=== PATIENT | female | born 1960 | race Caucasian/White ===

== ENCOUNTER 2023-08-27 07:24 | Outpatient (CLI) | payer MEDICAID ==
[2023-08-27 07:42] LABS: BASOPHILS % (AUTO) 0.7 %; EOSINOPHILS % (AUTO) 0.4 %; HCT - HEMATOCRIT 36.8 % (37.0-47.0); HGB - HEMOGLOBIN 12.9 g/dL (12.0-16.0); LYMPHOCYTES % (AUTO) 36.1 %; MEAN CORPUSCULAR HEMOGLOBIN 33.8 pg (27.0-31.0); MEAN CORPUSCULAR HGB CONC 35.1 g/dL (32.0-36.0); MEAN CORPUSCULAR VOLUME 96.3 fL (81.0-99.0); MONOCYTES # (AUTO) 0.2 10^3/uL (0.0-1.0); MONOCYTES % (AUTO) 7.9 %; NEUTROPHILS # (AUTO) 1.5 10^3/uL (1.5-6.6); NEUTROPHILS % (AUTO) 54.2 %; PLT - PLATELET COUNT 89 10^3/uL (130-450); RED BLOOD COUNT 3.82 10^6/uL (4.20-5.40); WHITE BLOOD COUNT 2.8 x10^3/uL (4.8-10.8)
[2023-08-27 07:46] LABS: SLIDE REVIEW? Indicated
[2023-08-27 08:01] LABS: PLATELET ESTIMATE, MANUAL DECREASED (<130,000) (NORMAL); PLATELET MORPHOLOGY NORMAL APPEARANCE (NORMAL); RBC MORPHOLOGY (MULTIPLE) NORMAL APPEARANCE (NORMAL)
[2023-08-27 08:07] LABS: ALBUMIN 3.9 g/dL (3.2-5.5); ALBUMIN/GLOBULIN RATIO 1.6 (1.0-2.2); ALKALINE PHOSPHATASE 266 IU/L (42-121); ALT ALANINE AMINOTRANSFERASE 135 IU/L (10-60); AST ASPARTATE AMINOTRANSFERASE 573 IU/L (10-42); BILIRUBIN,TOTAL 4.4 mg/dL (0.2-1.0); BUN - BLOOD UREA NITROGEN 5 mg/dL (6-20); CARBON DIOXIDE - CO2 24 mmol/L (21-32); CHLORIDE 98 mmol/L (101-111); CHOL/HDL RATIO 2.4 (<4.4); CHOLESTEROL 238 mg/dL; CREATININE 0.6 mg/dL (0.6-1.3); GFR - MDRD 102 (>89); GLUCOSE 92 mg/dL (74-104); HDL CHOLESTEROL 101 mg/dL; LDL CHOLESTEROL,CALCULATED 105 mg/dL; POTASSIUM 3.9 mmol/L (3.5-4.5); SODIUM 137 mmol/L (135-145); TOTAL PROTEIN 6.3 g/dL (6.4-8.9); TRIGLYCERIDES 160 mg/dL (48-352); VLDL CHOLESTEROL 32 mg/dL
[2023-08-27 10:25] LABS: ESTIMATED AVERAGE GLUCOSE 94 mg/dL (70-100); HEMOGLOBIN A1c% 4.9 % (4.27-6.07)
== END 2023-08-27 07:25 | disposition home or self-care (01) ==
LOC: DI 07:24
DX: Z00.00 Encounter for general adult medical examination without abnormal findings (principal)
CPT/HCPCS: 36415; 80050; 80061; 83036; 83721; 84439

== ENCOUNTER 2023-08-27 09:12 | Outpatient (CLI) | payer MEDICAID ==
--- NOTE | 2023-08-27 16:55 | XRAY Report ---
PROCEDURE: Chest 2V INDICATIONS: SHORTNESS OF BREATH TECHNIQUE: 2 views of the chest were acquired. COMPARISON: None. FINDINGS: Surgical changes and devices: None. Lungs and pleura: No pleural effusions or pneumothorax. Lungs are clear. Mediastinum: Mediastinal contours appear normal. Heart size is normal. Bones and chest wall: No suspicious bony lesions. Overlying soft tissues appear unremarkable. IMPRESSION: No acute cardiopulmonary process. Reviewed by: Desire Paulino MD on 08/27/2023 4:53 PM PDT Approved by: Desire Paulino MD on 08/27/2023 4:53 PM PDT Station ID: [id number]
== END 2023-08-27 23:59 | disposition home or self-care (01) ==
LOC: DI.N 09:12
DX: R07.81 Pleurodynia (principal)

== ENCOUNTER 2023-09-03 08:48 | Outpatient (CLI) | payer MEDICAID ==
[2023-09-03 12:23] LABS: GLUCOSE, URINE (UA) 100 mg/dL (NEGATIVE); KETONES,URINE (UA) TRACE mg/dL (NEGATIVE); OCCULT BLOOD,URINE NEGATIVE (NEGATIVE)
[2023-09-03 12:25] LABS: BILIRUBIN,URINE COLOR INTERFERENCE (NEGATIVE); CLARITY,URINE CLOUDY (CLEAR)
[2023-09-03 12:28] LABS: PT - PROTHROMBIN TIME 10.7 secs (9.9-12.6)
[2023-09-03 12:28] LABS: AMORPHOUS SEDIMENT,UR Marked /LPF; BACTERIA,URINE Few /HPF (None Seen); SQUAMOUS EPITHELIAL CELL,UR FEW Squamous (<= Few)
[2023-09-03 12:39] LABS: ALBUMIN 3.8 g/dL (3.2-5.5); BILIRUBIN,DIRECT 4.33 mg/dL (0.03-0.18); TOTAL PROTEIN 6.6 g/dL (6.4-8.9)
== END 2023-09-03 08:49 | disposition home or self-care (01) ==
LOC: LAB.N 08:48
DX: F10.20 Alcohol dependence, uncomplicated (principal)
CPT/HCPCS: 36415; 80076; 81001; 82105; 85610; 87086

== ENCOUNTER 2023-09-08 13:37 | Outpatient (CLI) | payer MEDICAID ==
[2023-09-09 03:10] LABS: HBsAG SCREEN Negative (Negative); HCV AB Non Reactive (Non Reactive); HEPATITIS B CORE IGM AB Negative (Negative)
== END 2023-09-08 13:38 | disposition home or self-care (01) ==
LOC: LAB.N 13:37
DX: F10.20 Alcohol dependence, uncomplicated (principal)
CPT/HCPCS: 36415; 80074

== ENCOUNTER 2023-09-27 06:54 | Outpatient (CLI) | payer MEDICAID ==
--- NOTE | 2023-09-27 16:08 | Ultrasound Report ---
PROCEDURE: Abdomen Complete INDICATIONS: ALCOHOL DEPENDENCE TECHNIQUE: Real-time scanning was performed of the abdominal and retroperitoneal organs, with image documentatio n. COMPARISON: None. FINDINGS: Liver: Liver is normal in size and demonstrates diffusely increased echotexture. Portal vein is moralez nt and demonstrates hepatopedal flow. Gallbladder: No gallstones, sludge, wall thickening or pericholecystic edema. Biliary ducts: Intrahepatic bile ducts are non-dilated. Extrahepatic bile duct caliber measures 4 m m. Normal is 6-7 mm or less in diameter, or 10 mm or less post-cholecystectomy. Pancreas: Visualized portions of the pancreas demonstrates is mildly increased echogenicity. Spleen: Spleen is normal in size and homogeneous in echotexture. Kidneys: Kidneys are normal in size and echotexture. Right kidney measures 9.5 cm long; left kidney measures 10.1 cm long. No hydronephrosis or nephrolithiasis. No solid masses. No complex renal cys tic lesions which require follow-up. Aorta: Visualized aorta is normal in caliber at less than 3 cm. Iliacs: Proximal common iliac arteries are normal in caliber at less than 2.5 cm. IVC: Intrahepatic inferior vena cava is patent. Miscellaneous: No free abdominal fluid. IMPRESSION: 1. Diffuse increased hepatic echotexture most likely secondary to hepatic fatty infiltration. Other h epatic cellular disease could have a similar ultrasound appearance. Please correlate with liver funct ion tests. 2. Pancreas is probably increased echogenicity. Please correlate with serum lipase. Reviewed by: Charles Paez MD on 09/27/2023 3:07 PM AKDT Approved by: Charles Paez MD on 09/27/2023 3:07 PM AKDT Station ID: [id number]
== END 2023-09-27 06:55 | disposition home or self-care (01) ==
LOC: DI 06:54
DX: F10.20 Alcohol dependence, uncomplicated (principal)

== ENCOUNTER 2024-12-13 15:42 | Observation (INO) ==
[2024-12-13] MEDS: PANTOPRAZOLE 40 MG VIAL IVP STA (16:36)
[2024-12-13] MEDS: ONDANSETRON 4 MG/2 ML VIAL IVP STA (16:36)
[2024-12-13 16:41] LABS: HCT - HEMATOCRIT 30.5 % (37.0-47.0); HGB - HEMOGLOBIN 10.0 g/dL (12.0-16.0); MEAN PLATELET VOLUME 9.5 fL (7.9-10.8); NRBC ABSOLUTE COUNT (AUTO) 0.00 x10^3/uL; NUCLEATED RED BLOOD CELLS AUTO 0.0 /100WBC; PLT - PLATELET COUNT 173 10^3/uL (130-450); RED CELL DISTRIBUTION WIDTH 15.9 % (12.0-15.0)
[2024-12-13 16:51] LABS: CARBON DIOXIDE - CO2 15.0 mmol/L (21-32)
--- NOTE | 2024-12-13 16:51 | ED Physician Documentation ---
History of Present Illness Stated complaint Stated Complaint: VOMITING, GI Chief complaint Chief Complaint: Abd Pain History obtained from History obtained from: Patient and Family History of Present Illness Pain level max: 3 Pain level now: 2 Additonal information Additional information: Patient is a 64-year-old female who presents to the emergency department with vomiting x 4 days. Today she started vomiting bloody emesis. She states that she has had dark tarry stools today as well. Denies any history of liver disease, varices. Has not had similar symptoms previously. No fevers or chills. She states she drinks 1-2 shots of whiskey every 2 days. No fevers. No recent travel. No antibiotics. She complains of epigastric abdominal pain. Has not had similar symptoms previously. Has never had an endoscopy or colonoscopy. Review of Systems Constitutional Denies: Fever or Chills Cardiovascular Denies: chest pain Respiratory Denies: Cough Gastrointestinal Reports: Nausea and Vomiting Meds/Allgy Home Medications Ambulatory Orders Medication Instructions Recorded Confirmed epinephrine 0.3 mg/0.3 mL 0.3 mg IM Q15M 12/13/2411/18 injection, auto-injector (EpiPen) ibuprofen 800 mg tablet 800 mg PO BID 12/13/2412/14 Allergies Allergies Allergy/AdvReac Type Severity Reaction Status Date / Time Penicillins Allergy Intermediate Hives Verified 12/13/24 16:05 acetaminophen (From Percocet) Allergy Mild affect Verified 12/13/24 18:58 vision, can tolerate the vicodin oxycodone (From Percocet) Allergy Mild affect Verified 12/13/24 18:58 vision, can tolerate the vicodin PFSH Active Problems All Active Problems Knee pain (Acute) Hip pain (Acute) Sinusitis (Acute) Asthma (Acute) Bronchitis (Acute) Osteoarthrosis (Acute) Back pain, acute (Acute) Bacterial sinusitis (Acute) Elevated blood pressure reading (Acute) Dysfunction of both eustachian tubes (Acute) Right otitis media (Acute) Allergic rhinitis (Acute) Allergic conjunctivitis, bilateral (Acute) Encounter for preventative adult health care examination (Acute) Shortness of breath (Acute) Rib pain on left side (Acute) Abdominal pain, LUQ (Acute) H/O colonoscopy (Acute) Pap smear abnormality of cervix (Acute) Screening mammography declined (Acute) Dizziness (Acute) Encounter for smoking cessation counseling (Acute) Alcohol dependence (Acute) Cough (Acute) Elevated LFTs (Acute) Metabolic acidosis (Acute) Alcohol abuse (Acute) Acute upper gastrointestinal bleeding (Acute) Vomiting (Acute) Medical History Medical History No pertinent past medical history No pertinent past medical history Social History Social History Smoking Status: Current some day smoker Number of Years Smoked: 50 How many cigarettes a day do you smoke? (20 cigarettes=1 Pk): 1 Second hand tobacco smoke exposure: Yes Do you dip or chew tobacco?: No Do you vape?: No Patient requests smoking cessation consult: No Initiate information on smoking cessation: No Smoking Status Details: The patient stated she is trying to quit smoking for ten years now and is currently smoking 1/2 a cigarette daily. She used to smoke 8-10 cigarettes a day. Living arrangement: At home Marital Status: Living Condition: With spouse/s.o. Level: Independent Do you feel safe in your home environment?: Yes History of physical, verbal, emotional, or financial abuse?: No ETOH Use: Beer Frequency: Daily Substance Use: cannabis (any form) Exam Exam Vital Signs: Vital Signs x48h Temp Pulse Resp BP Pulse Ox 12/13/24 16:34 100 16 135/72 H 98 12/13/24 16:19 103 H 16 136/96 H 98 12/13/24 16:04 98 16 139/86 H 99 12/13/24 16:02 36.9 C 109 H 15 151/96 H 98 Constitutional normal general appearance and no apparent distress Thin female HENMT oropharynx normal moist mucous membranes Eyes PERRL Neck/C-Spine visual inspection normal Respiratory breath sounds equal bilaterally, normal respiratory effort and clear to auscultation bilaterally Cardiovascular normal heart rate noted and regular rhythm noted Gastrointestinal abdomen normal to inspection, abdomen soft to palpation and nondistended Mild diffuse abdominal tenderness. No peritoneal signs. Genitourinary no CVA tenderness Extremities no edema Neurology speech normal Psychiatry mental status grossly normal and oriented x3 Skin skin color normal Results Vitals Vitals: Vital Signs - 24 hr 12/13/24 16:02 12/13/24 16:04 12/13/24 16:19 Temperature 36.9 C Temperature Source Temporal Artery Scan Pulse Rate 109 H 98 103 H Respiratory Rate 15 16 16 Blood Pressure 151/96 H 139/86 H 136/96 H O2 Saturation 98 99 98 O2 Source Room air Room air Room air Pain Intensity 7 6 6 12/13/24 16:34 12/13/24 17:00 12/13/24 18:00 Temperature Temperature Source Pulse Rate 100 110 H 110 H Respiratory Rate 16 16 18 Blood Pressure 135/72 H 135/72 H 130/70 O2 Saturation 98 97 96 O2 Source Room air Room air Room air Pain Intensity 6 5 5 12/13/24 18:07 Temperature Temperature Source Pulse Rate Respiratory Rate Blood Pressure O2 Saturation O2 Source Pain Intensity 6 Oxygen O2 Source Room air Labs Labs: Laboratory Tests 12/13/24 12/13/24 16:30 16:55 WBC 14.1 H RBC 3.19 L Hgb 10.0 L Hct 30.5 L MCV 95.6 MCH 31.3 H MCHC 32.8 RDW 15.9 H Plt Count 173 MPV 9.5 Neut # (Auto) 12.3 H Lymph # (Auto) 1.1 L [place] # (Auto) 0.6 Eos # (Auto) 0.0 Baso # (Auto) 0.1 Absolute Nucleated RBC 0.00 Nucleated RBC % 0.0 PT 13.4 H INR 1.2 APTT 27.1 Sodium 133 L Potassium 3.5 Chloride 91 L Carbon Dioxide 15 L Anion Gap 27.0 H BUN 9 Creatinine 0.5 L Estimated GFR (MDRD) 125 Glucose 57 L* Calcium 8.6 Phosphorus 2.7 Magnesium 1.6 L Total Bilirubin 2.4 H AST 83 H ALT 28 Alkaline Phosphatase 305 H Total Protein 6.9 Albumin 4.1 Globulin 2.8 Albumin/Globulin Ratio 1.5 Lipase 315 H Urine Color YELLOW Urine Clarity CLEAR Urine pH 6.0 Ur Specific Hanna 1.030 Urine Protein 30 H Urine Glucose (UA) NEGATIVE Urine Ketones >=80 H Urine Occult Blood SMALL Urine Nitrite NEGATIVE Urine Bilirubin NEGATIVE Urine Urobilinogen 0.2 (NORMAL) Ur Leukocyte Esterase NEGATIVE Urine RBC 0-5 Urine WBC 0-3 Ur Squamous Epith Cells MANY Squamous H Urine Bacteria Rare Urine Casts 3-5 Hyaline Casts Ur Microscopic Review INDICATED Urine Culture Comments NOT INDICATED Ethyl Alcohol 81.3 Blood Type A POSITIVE Antibody Screen NEGATIVE PD Medical Decision Making ED course Complexity details: reviewed results, re-evaluated patient, considered differential and d/w patient ED course: Patient with hematemesis after 4 days of vomiting. Has been states she drinks alcohol daily. She states she has 1 shot of alcohol every 2 days. Her alcohol level is elevated here. Given IV Protonix, Zofran and Reglan. CT scan shows hepatic steatosis with small ascites and possible enterocolopathy. Hemoglobin is 10 here. She did have active hematemesis. No history of varices. No varices seen on CT scan. Given her active upper GI bleed, will place in observation with the hospitalist for serial hemoglobin hematocrit. Consult to Dr. Arboleda, general surgery who will see the patient for possible endoscopy. Discussed with the hospitalist who accepts. This document was made in part using voice recognition software. While efforts are made to proofread this document, sound alike and grammatical errors may occur. Discharge Plan Discharge Patient Disposition: ED Place in Observation Clinical Impression: Vomiting, Acute upper gastrointestinal bleeding Interventions: ED Admission Assessment Last Done: 12/13/24 18:55 Vitals documented within 30 minutes of discharge?: Yes
[2024-12-13 16:53] LABS: ETOH - ETHANOL 81.3 mg/dL; PHOSPHORUS 2.7 mg/dL (2.5-5.0)
[2024-12-13 16:54] LABS: ALT ALANINE AMINOTRANSFERASE 28.0 IU/L (10-60); AST ASPARTATE AMINOTRANSFERASE 83.0 IU/L (10-42); BUN - BLOOD UREA NITROGEN 9.0 mg/dL (6-20); CREATININE 0.5 mg/dL (0.6-1.3); GFR - MDRD 125.0 (>89)
[2024-12-13 16:56] LABS: INR 1.2 (0.8-1.2); PT - PROTHROMBIN TIME 13.4 secs (9.9-12.6)
[2024-12-13] MEDS: SODIUM CHLORIDE 0.9% 1,000 ML IV STA (16:57)
[2024-12-13] MEDS: DEXTROSE 50% ABBOJECT 25 GM/50 ML SYRINGE IVP STA (17:07)
[2024-12-13 17:12] LABS: GLUCOSE, URINE (UA) NEGATIVE (NEGATIVE); KETONES,URINE (UA) >=80 mg/dL (NEGATIVE); OCCULT BLOOD,URINE SMALL (NEGATIVE)
[2024-12-13 17:13] LABS: CASTS, URINE 3-5 Hyaline Casts /LPF; SQUAMOUS EPITHELIAL CELL,UR MANY Squamous (<= Few)
[2024-12-13] MEDS: METOCLOPRAMIDE 10 MG/2 ML VIAL IVP STA (17:13)
--- NOTE | 2024-12-13 17:47 | CT Report ---
EXAM: CT Abdomen/Pelvis W DATE: 12/13/2024 5:00 PM PDT INDICATION: 64 years Female with vomiting, gi bleed TECHNIQUE: Using MDCT technique, axial images were obtained through the abdomen and pelvis, from the bases of the lungs through the pubic symphysis, following the intravenous administration of contrast. Sagittal and coronal MPR reconstructions were performed. Scan was performed in compliance with NEMA XR 29-213 Dose Limiting Standard. In accordance with CT protocol optimization, one or more of the following dose reduction techniques were utilized for this exam: automated exposure control, adjustment of mA and/or KV based on patient size, or use of iterative reconstructive technique. PROTOCOL: Routine LIMITATION: None. CONTRAST: 80 cc Omnipaque 300 COMPARISON: None available. FINDINGS: Lung bases and visualized mediastinum: No consolidation or pleural effusion. Probable wall thickening of the distal thoracic esophagus. Liver: There is hepatomegaly measuring 17.85 cm in vertical diameter. There is contour nodularity as well as enlargement of the lateral segment of the left lobe. Probable significant diffuse fatty infiltration, with heterogeneous appearance. There is a recanalized left paraumbilical vein with mild abdominal varices. Spleen: No significant focal lesion seen. Pancreas: No significant focal lesion seen. Gallbladder and bile ducts: No biliary dilatation or significant focal lesion seen. Adrenal glands: No significant focal lesion seen. Kidneys and ureters: No calculi, hydronephrosis, or suspicious focal lesions are seen. GI tract, mesentery, and peritoneum: There is a small amount of ascites seen in the upper abdomen and pelvis. There is no bowel dilatation. There is significant wall thickening of the right colon, with submucosal edema. There is also wall thickening in the distal ileum. No free air or fluid collections. There is moderate degree of diffuse mesenteric edema. Upper abdomen and retroperitoneal spaces: No significant adenopathy or other mass seen. Vascular structures: The abdominal aorta, major visceral branches and iliac arteries are normal in caliber. Urinary bladder: No significant focal lesion seen. Reproductive organs: The uterus and adnexal regions are unremarkable. Inguinal regions and abdominal wall: No hernia or other significant focal lesion seen. Osseous structures: No significant focal lesion seen. IMPRESSION: 1. Size of diffuse hepatocellular disease, with hepatomegaly, probably significant fatty infiltration and possible superimposed acute steatohepatitis. 2. There are signs of portal hypertension, small amount of ascites, diffuse mesenteric edema, no significant splenomegaly. 3. Wall thickening of the distal ileum and right colon, may be due to portal enterocolopathy, the possibility of inflammatory bowel disease would have to be excluded clinically. No focal lesion otherwise. Reviewed by: Les Pang MD on 12/13/2024 5:46 PM PDT Approved by: Les Pang MD on 12/13/2024 5:46 PM PDT Station ID: [id number]
[2024-12-13] MEDS: LORazepam 2 MG/ML VIAL IVP STA (17:51)
[2024-12-13] MEDS: HYDROmorphone 0.5 MG/0.5 ML SYRINGE IVP STA (18:07)
--- NOTE | 2024-12-13 18:32 | HISTORY & PHYSICAL EXAMINATION ---
Chief Complaint Chief Complaint Chief Complaint: Vomiting History of Present Illness Admitted From Admitted From:: Home with significant other History Obtained From History obtained from: Interview with patient and significant other History of Present Illness HPI Comment/Other: 64-year-old female who reports drinking 1-2 drinks of whiskey a day has been vomiting for the past 4 days. She reports significant vomiting for 4 days, with coffee-ground/dark red emesis today. She also reports melanotic stools and abdominal pain. She reports she only has 1-2 shots of whiskey a day and her last drink was 6 days ago. Of note, her significant other reports that he thinks that is more like 1 to 2 glasses of whiskey a day at minimum and she did have an elevated alcohol content in the ER In the ER, she was noted to have a hemoglobin of 10 which is down from the 12.9 from last year. Also with leukocytosis at 14.1, CO2 15, anion gap 27, glucose 57. LFTs were elevated, but they actually appear better than when they were checked last year. UA positive for ketones. CT abdomen/pelvis was performed which shows diffuse hepatocellular disease with hepatomegaly, probable superimposed acute steatohepatitis. Also signs of portal hypertension, small ascites, diffuse mesenteric edema, as well as wall thickening of the distal ileum and right colon caused by portal enterocolopathy versus inflammatory bowel disease. Given her drop in hemoglobin secondary to hematemesis, general surgery was contacted by ER provider, and recommendation was made for medicine to place in observation for serial hemoglobin Meds/Allgy Home Medications Ambulatory Orders Medication Instructions Recorded Confirmed epinephrine 0.3 mg/0.3 mL 0.3 mg IM Q15M 12/13/24 injection, auto-injector (EpiPen) ibuprofen 800 mg tablet 800 mg PO BID 12/13/24 Allergies Allergies Allergy/AdvReac Type Severity Reaction Status Date / Time Penicillins Allergy Intermediate Hives Verified 12/13/24 16:05 acetaminophen (From Percocet) Allergy Mild affect Verified 12/13/24 18:58 vision, can tolerate the vicodin oxycodone (From Percocet) Allergy Mild affect Verified 12/13/24 18:58 vision, can tolerate the vicodin PFSH Active Problems All Active Problems (Updated 12/13/24 @ 19:08 by Jeronimo Quispe) Knee pain (Acute) Hip pain (Acute) Sinusitis (Acute) Asthma (Acute) Bronchitis (Acute) Osteoarthrosis (Acute) Back pain, acute (Acute) Bacterial sinusitis (Acute) Elevated blood pressure reading (Acute) Dysfunction of both eustachian tubes (Acute) Right otitis media (Acute) Allergic rhinitis (Acute) Allergic conjunctivitis, bilateral (Acute) Encounter for preventative adult health care examination (Acute) Shortness of breath (Acute) Rib pain on left side (Acute) Abdominal pain, LUQ (Acute) H/O colonoscopy (Acute) Pap smear abnormality of cervix (Acute) Screening mammography declined (Acute) Dizziness (Acute) Encounter for smoking cessation counseling (Acute) Alcohol dependence (Acute) Cough (Acute) Elevated LFTs (Acute) Metabolic acidosis (Acute) Alcohol abuse (Acute) Acute upper gastrointestinal bleeding (Acute) Vomiting (Acute) Social History Social History (Updated 12/13/24 @ 16:22 by Sergio Krause, RN, BSN) Smoking Status: Current some day smoker Living arrangement: At home Marital Status: Living Condition: With spouse/s.o. Do you feel safe in your home environment?: Yes History of physical, verbal, emotional, or financial abuse?: No ETOH Use: Beer Frequency: Daily Substance Use: cannabis (any form) Review of Systems Status of ROS: 10 or more systems reviewed and unremarkable except as noted in history and below Constitutional Denies: Fever or Chills Cardiovascular Denies: Irregular heart rate, chest pain, palpitations, edema or shortness of breath with exertion Respiratory Denies: Shortness of breath or Cough Gastrointestinal Reports: Abdominal pain, Nausea, Vomiting, Coffee grounds in vomit and Melena; Denies: Abdominal distention Genitourinary Denies: Painful urination Exam Exam Vital Signs: Vital Signs x48h Temp Pulse Pulse Resp BP BP Pulse Ox 12/13/24 19:12 36.6 C 110 H 20 113/78 95 12/13/24 18:55 116 H 18 124/87 96 12/13/24 18:00 110 H 18 130/70 96 12/13/24 17:00 110 H 16 135/72 H 97 12/13/24 16:34 100 16 135/72 H 98 12/13/24 16:19 103 H 16 136/96 H 98 12/13/24 16:04 98 16 139/86 H 99 12/13/24 16:02 36.9 C 109 H 15 151/96 H 98 Constitutional normal general appearance HENMT normocephalic and head/scalp atraumatic Eyes PERRL Neck/C-Spine visual inspection normal Lymph no lymphadenopathy noted Chest inspection of chest normal Respiratory breath sounds equal bilaterally and normal respiratory effort Cardiovascular heart rate abnormal (tachycardic) Gastrointestinal abdomen normal to inspection, abdomen soft to palpation and tender to palpation (mild) (Generalized, but worsened in the upper half) Extremities normal to inspection Neurology GCS 15 Psychiatry oriented x3 Skin skin color normal Conclusion/Plan Problem List (1) Acute upper gastrointestinal bleeding: Plan: Secondary to alcohol abuse Reports coffee-ground emesis and melena for the past day General Surgery consult Received 40 mg Protonix in the ER 40 mg Protonix IV push twice daily Carafate 4 times daily Trend hemoglobin every 8 (2) Alcohol abuse: Plan: Patient reports drinking 1-2 shots of whiskey a day, and that her last drink was 6 days ago. Of note, significant other reports that these "shots" are likely more normal glass size. Also, she had an elevated ethanol level in the ED Evidence of liver disease on CT, likely secondary to this I have ordered CIWA protocol with as needed Ativan Librium 25 mg p.o. every 6 hours (3) Metabolic acidosis: Plan: She has a high anion gap metabolic acidosis with an anion gap of 27 and CO2 of 15 This is a combination of effect of alcohol, starvation ketosis, Dehydration She was given 1 L saline in the ER I am starting her on LR at 150 x 2 bags BMP in a.m. (4) Elevated LFTs: Plan: She has had a LFT elevation per our records for at least a year. Her levels are actually improved from the last time she was checked She will need follow-up outpatient for this and aggressive alcohol cessation counseling Plan Place in observation DNR/DNI Her significant other is her surrogate decision maker Lab Results Lab results reviewed: Yes 12/13/24 19:53 12/13/24 16:30 Diagnostic Imaging Results Diagnostic Imaging Results: positive Final report reviewed Core Measures Anticipated LOS I expect patient to be DC'd or transferred within 96 hours.: Yes DVT/VTE - Prophylaxis VTE/DVT Device ordered at admit?: Yes
[2024-12-13] MEDS ORDERED: ONDANSETRON ODT 4 MG TABLET TL PRN (19:03)
[2024-12-13] MEDS: THIAMINE 100 MG/1 ML 2 ML MDV IVP ONE (19:38)
[2024-12-13] MEDS: LACTATED RINGERS 1,000 ML IV SCH (19:39)
[2024-12-13] MEDS: SUCRALFATE 1 GM/10 ML UDC PO SCH (19:46)
[2024-12-13 19:58] LABS: HCT - HEMATOCRIT 26.6 % (37.0-47.0); HGB - HEMOGLOBIN 8.6 g/dL (12.0-16.0)
[2024-12-13] MEDS: DEXTROSE 5%-LACTATED RINGERS 1,000 ML IV SCH (20:56)
[2024-12-13] MEDS: ACETAMINOPHEN 325 MG TABLET PO PRN (22:10)
[2024-12-13] MEDS: PANTOPRAZOLE 40 MG VIAL IVP SCH (22:11)
[2024-12-14] MEDS: SODIUM CHLORIDE FLUSH 0.9% 10 ML SYRINGE IVP SCH (00:04)
[2024-12-14 05:22] LABS: HCT - HEMATOCRIT 23.9 % (37.0-47.0); HGB - HEMOGLOBIN 8.0 g/dL (12.0-16.0); MEAN PLATELET VOLUME 10.3 fL (7.9-10.8); NRBC ABSOLUTE COUNT (AUTO) 0.00 x10^3/uL; NUCLEATED RED BLOOD CELLS AUTO 0.0 /100WBC; PLT - PLATELET COUNT 91 10^3/uL (130-450); RED CELL DISTRIBUTION WIDTH 15.9 % (12.0-15.0)
[2024-12-14 05:40] LABS: BUN - BLOOD UREA NITROGEN 7.0 mg/dL (6-20); CARBON DIOXIDE - CO2 24.0 mmol/L (21-32); CREATININE 0.5 mg/dL (0.6-1.3); GFR - MDRD 125.0 (>89)
[2024-12-14] MEDS: POTASSIUM CHLOR 10 MEQ/100 ML 10 MEQ/100 ML BAG IV SCH ×2 (07:41→22:21)
--- NOTE | 2024-12-14 08:29 | ANESTHESIA PROCEDURE NOTE ---
Pre-Anesthesia VS, & Labs Diagnosis Surgical Diagnosis:: GI bleed Procedure Procedure: EGD Vitals Vital Signs: Temp Pulse Resp BP Pulse Ox O2 Flow Rate 36.7 C 108 H 18 108/76 96 1 12/14/24 07:40 12/14/24 07:40 12/14/24 07:40 12/14/24 07:40 12/14/24 07:40 12/14/24 07:40 Height (in): 5 ft 3 in Weight (kg): 45 kg Body Mass Index: 17.5 BMI Classification: Underweight NPO NPO: >8 hours Is Patient ?: Not Applicable Lab Results Current Lab Results: Laboratory Tests 12/14/24 06:03: POC Whole Bld Glucose 208 12/14/24 04:47: WBC 4.5 L, RBC 2.55 L, Hgb 8.0 L, Hct 23.9 L, MCV 93.7, MCH 31.4 H, MCHC 33.5, RDW 15.9 H, Plt Count 91 L, MPV 10.3, Neut # (Auto) 3.6, Lymph # (Auto) 0.6 L, [place] # (Auto) 0.2, Eos # (Auto) 0.1, Baso # (Auto) 0.0, Absolute Nucleated RBC 0.00, Nucleated RBC % 0.0, Sodium 131 L, Potassium 2.8 L, Chloride 96 L, Carbon Dioxide 24, Anion Gap 11.0, BUN 7, Creatinine 0.5 L, Estimated GFR (MDRD) 125, Glucose 170 H, Calcium 7.8 L 12/14/24 00:04: POC Whole Bld Glucose 143 12/13/24 20:34: POC Whole Bld Glucose 79 12/13/24 19:53: Hgb 8.6 L, Hct 26.6 L 12/13/24 16:30: WBC 14.1 H, RBC 3.19 L, Hgb 10.0 L, Hct 30.5 L, MCV 95.6, MCH 31.3 H, MCHC 32.8, RDW 15.9 H, Plt Count 173, MPV 9.5, Neut # (Auto) 12.3 H, L ymph # (Auto) 1.1 L, [place] # (Auto) 0.6, Eos # (Auto) 0.0, Baso # (Auto) 0.1, Absolute Nucleated RBC 0.00, Nucleated RBC % 0.0, PT 13.4 H, INR 1.2, APTT 27.1, Sodium 133 L, Potassium 3.5, Chloride 91 L, Carbon Dioxide 15 L, Anion Gap 27.0 H, BUN 9, Creatinine 0.5 L, Estimated GFR (MDRD) 125, Glucose 57 L*, Calcium 8.6, Phosphorus 2.7, Magnesium 1.6 L, Total Bilirubin 2.4 H, AST 83 H, ALT 28, A lkaline Phosphatase 305 H, Total Protein 6.9, Albumin 4.1, Globulin 2.8, Albumin/Globulin Ratio 1.5, Lipase 315 H, Ethyl Alcohol 81.3, Blood Type A POSITIVE, Antibody Screen NEGATIVE Lab results reviewed: Yes 12/14/24 04:47 12/14/24 04:47 Meds/Allgy Home Medications Ambulatory Orders Medication Instructions Recorded Confirmed epinephrine 0.3 mg/0.3 mL 0.3 mg IM Q15M 12/13/2411/18 injection, auto-injector (EpiPen) ibuprofen 800 mg tablet 800 mg PO BID 12/13/2412/14 Allergies Allergies Allergy/AdvReac Type Severity Reaction Status Date / Time Penicillins Allergy Intermediate Hives Verified 12/13/24 16:05 acetaminophen (From Percocet) Allergy Mild affect Verified 12/13/24 18:58 vision, can tolerate the vicodin oxycodone (From Percocet) Allergy Mild affect Verified 12/13/24 18:58 vision, can tolerate the vicodin PFSH Active Problems All Active Problems Knee pain (Acute) Hip pain (Acute) Sinusitis (Acute) Asthma (Acute) Bronchitis (Acute) Osteoarthrosis (Acute) Back pain, acute (Acute) Bacterial sinusitis (Acute) Elevated blood pressure reading (Acute) Dysfunction of both eustachian tubes (Acute) Right otitis media (Acute) Allergic rhinitis (Acute) Allergic conjunctivitis, bilateral (Acute) Encounter for preventative adult health care examination (Acute) Shortness of breath (Acute) Rib pain on left side (Acute) Abdominal pain, LUQ (Acute) H/O colonoscopy (Acute) Pap smear abnormality of cervix (Acute) Screening mammography declined (Acute) Dizziness (Acute) Encounter for smoking cessation counseling (Acute) Alcohol dependence (Acute) Cough (Acute) Elevated LFTs (Acute) Metabolic acidosis (Acute) Alcohol abuse (Acute) Acute upper gastrointestinal bleeding (Acute) Vomiting (Acute) Medical History Medical History No pertinent past medical history No pertinent past medical history Social History Social History Smoking Status: Current some day smoker Number of Years Smoked: 50 How many cigarettes a day do you smoke? (20 cigarettes=1 Pk): 1 Second hand tobacco smoke exposure: Yes Do you dip or chew tobacco?: No Do you vape?: No Patient requests smoking cessation consult: No Initiate information on smoking cessation: No Smoking Status Details: The patient stated she is trying to quit smoking for ten years now and is currently smoking 1/2 a cigarette daily. She used to smoke 8-10 cigarettes a day. Living arrangement: At home Marital Status: Living Condition: With spouse/s.o. Level: Independent Do you feel safe in your home environment?: Yes History of physical, verbal, emotional, or financial abuse?: No ETOH Use: Beer Frequency: Daily Substance Use: cannabis (any form) Anesthesia Exam (Expanded) Exam General: Mild distress Dental: WNL Mouth Openin Fingerbreadth Neck Mobility: Reduced Thyromental Distance: 4-6 cm Exam Exam Vital Signs: Vital Signs x48h Temp Pulse Resp BP BP Pulse Ox O2 Flow Rate 12/14/24 07:40 36.7 C 108 H 18 108/76 96 1 12/14/24 03:52 94 1 12/14/24 03:52 36.7 C 110 H 20 109/73 91 L Plan Plan Anesthesia Type: General Consent for Procedure(s) Verified and Reviewed: Yes Code Status: Attempt Resuscitation (Limited; patient has a DNR, but agrees to let us correct anything we believe to be related to anesthesia; will accept blood transfusion; does not want shock or chest compressions) ASA Classification ASA classification: 3-Severe systemic disease Is this case an emergency?: Yes
[2024-12-14] MEDS ORDERED: THROMBIN (BOVINE) 5,000 UNIT VIAL TOP ONE (08:54)
[2024-12-14] MEDS ORDERED: PROPOFOL 200 MG/20 ML VIAL IVP ONE (09:24)
[2024-12-14] MEDS ORDERED: LIDOCAINE-PF 2% 10 ML AMP SUBQ ONE (09:24)
[2024-12-14] MEDS ORDERED: fentaNYL 100 MCG/2 ML VIAL ONE (09:24)
[2024-12-14] MEDS ORDERED: ROCURONIUM 50 MG/5 ML VIAL ONE (09:24)
[2024-12-14] MEDS ORDERED: ePHEDrine 50 MG/ML VIAL IVP ONE (09:30)
[2024-12-14] MEDS ORDERED: SUGAMMADEX 200 MG/2 ML VIAL IVP ONE (09:36)
[2024-12-14] MEDS ORDERED: ATROPINE ABBOJECT 1 MG/10 ML SYRINGE IVP PRN (09:49)
[2024-12-14] MEDS ORDERED: NALOXONE 0.4 MG/ML VIAL IVP PRN (09:49)
[2024-12-14] MEDS ORDERED: METOCLOPRAMIDE 10 MG/2 ML VIAL IVP PRN (09:49)
[2024-12-14] MEDS ORDERED: ONDANSETRON 4 MG/2 ML VIAL IVP PRN (09:49)
[2024-12-14] MEDS ORDERED: fentaNYL 100 MCG/2 ML VIAL IVP PRN (09:49)
[2024-12-14] MEDS ORDERED: ePHEDrine 50 MG/ML VIAL IVP PRN (09:49)
[2024-12-14] MEDS ORDERED: ONDANSETRON 4 MG/2 ML VIAL ONE (09:58)
[2024-12-14] MEDS: ONDANSETRON 4 MG/2 ML VIAL IVP PRN (10:00)
--- NOTE | 2024-12-14 10:03 | PHARMACY PROGRESS NOTE ---
Best Possible Medication History Admit Date and Time: 12/13/24 1815 Home Medications Medication Instructions Recorded Confirmed Type epinephrine 0.3 mg/0.3 mL 0.3 mg IM Q15M 12/13/2411/18 History injection, auto-injector (EpiPen) ibuprofen 800 mg tablet 800 mg PO BID 12/13/2412/14 History Processed by: Pharmacy Medications reviewed in ED?: No Medication History completed: Yes Patient Interview: Completed [facility] Statement: As the person ultimately responsible for medication therapy, providers are able to order a medication from an existing home medication list in [facility] via the "Reconcile Routine" prior to Confirmation of that medication by support merchandiser. Such practice is discouraged except when the physician, in their clinical judgment, deems that a medical need exists for a medication without regard to previous use.
[2024-12-14] MEDS: LACTATED RINGERS 1,000 ML IV SCH (10:12)
--- NOTE | 2024-12-14 10:39 | ANESTHESIA POST OP EVALUATION ---
Anesthesia Post Eval Post Anesthesia Eval Vitals: Last Vital Signs Temp 36.1 C L 12/14/24 10:20 Pulse 105 H 12/14/24 10:25 Resp 18 12/14/24 10:25 BP 91/67 12/14/24 10:25 Pulse Ox 93 12/14/24 10:25 O2 Flow Rate 1 12/14/24 07:40 CV Function Including HR & BP: Stable Pain Control: Satisfactory Nausea & Vomiting: Negative Mental Status: Baseline Respiratory Status: Airway Patent Hydration Status: Satisfactory Anesthesia Complications: None
[2024-12-14] MEDS: THIAMINE 100 MG TABLET PO SCH (11:13)
[2024-12-14] MEDS: PRENATAL VITAMIN TABLET PO SCH (11:14)
--- NOTE | 2024-12-14 11:23 | CONSULTATION NOTE ---
Referring Provider Name of Referring Provider:: Michael Posadas DNP Consult Date: 12/13/24 Chief Complaint Chief Complaint Chief Complaint: Hematemesis and melena History of Present Illness Admitted From Admitted From:: ED History Obtained From Records Reviewed: Yes History obtained from: Chart and patient Exam Limitations: None History of Present Illness HPI Comment/Other: Patient was examined in the [facility] med-surg unit at the request of Michael Posadas DNP for an EGD to determine the source of her hematemesis. 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 Her admission blood alcohol would likely argue for a higher consumption. The patient states that she started vomiting about 4 days ago and with time the vomitus became bloody. Soon thereafter she noted dark stools. She is thin but has not noted recent unexplained weight loss. CT scan showed likely liver disease and there is a concern for varices versus ulcer disease. She denies any recent endoscopy. Meds/Allgy Home Medications Ambulatory Orders Medication Instructions Recorded Confirmed epinephrine 0.3 mg/0.3 mL 0.3 mg IM Q15M 12/13/2411/18 injection, auto-injector (EpiPen) ibuprofen 800 mg tablet 800 mg PO BID 12/13/2412/14 omeprazole 40 mg capsule,delayed 40 mg PO BID #60 caps 12/16/24 release vit,calcium 27-ferrous 1 tab PO DAILY 30 days #30 tabs 12/16/24 fum 60 mg iron-folic acid 1 mg tablet (Trinatal Rx 1) thiamine mononitrate (vit B1) 100 100 mg PO DAILY 30 d ays #30 tabs 12/16/24 mg tablet (Vitamin B-1 (mononitrate)) tramadol 50 mg tablet 50 mg PO Q8H PRN pain #20 ta bs 12/16/24 rivaroxaban 15 mg (42)-20 mg (9) See Rx Instructions P O .COMPLEX 12/17/24 tablets in a starter pack #51 ea Allergies Allergies Allergy/AdvReac Type Severity Reaction Status Date / Time Penicillins Allergy Intermediate Hives Verified 12/13/24 16:05 acetaminophen (From Percocet) Allergy Mild affect Verified 12/13/24 18:58 vision, can tolerate the vicodin oxycodone (From Percocet) Allergy Mild affect Verified 12/13/24 18:58 vision, can tolerate the vicodin PFS Active Problems All Active Problems Hematemesis of unknown etiology (Acute) Portal vein thrombosis (Acute) Alcoholic pancreatitis (Acute) Hyponatremia (Acute) Knee pain (Acute) Hip pain (Acute) Sinusitis (Acute) Asthma (Acute) Bronchitis (Acute) Osteoarthrosis (Acute) Back pain, acute (Acute) Bacterial sinusitis (Acute) Elevated blood pressure reading (Acute) Dysfunction of both eustachian tubes (Acute) Right otitis media (Acute) Allergic rhinitis (Acute) Allergic conjunctivitis, bilateral (Acute) Encounter for preventative adult health care examination (Acute) Shortness of breath (Acute) Rib pain on left side (Acute) Abdominal pain, LUQ (Acute) H/O colonoscopy (Acute) Pap smear abnormality of cervix (Acute) Screening mammography declined (Acute) Dizziness (Acute) Encounter for smoking cessation counseling (Acute) Alcohol dependence (Acute) Cough (Acute) Elevated LFTs (Acute) Alcohol abuse (Acute) Medical History Medical History No pertinent past medical history No pertinent past medical history Social History Social History Smoking Status: Current some day smoker Number of Years Smoked: 50 How many cigarettes a day do you smoke? (20 cigarettes=1 Pk): 1 Second hand tobacco smoke exposure: Yes Do you dip or chew tobacco?: No Do you vape?: No Patient requests smoking cessation consult: No Initiate information on smoking cessation: No Smoking Status Details: The patient stated she is trying to quit smoking for ten years now and is currently smoking 1/2 a cigarette daily. She used to smoke 8-10 cigarettes a day. Living arrangement: At home Marital Status: Living Condition: With spouse/s.o. Level: Independent Do you feel safe in your home environment?: Yes History of physical, verbal, emotional, or financial abuse?: No ETOH Use: Beer Frequency: Daily Substance Use: cannabis (any form) Results Lab Results Lab results reviewed: Yes 12/16/24 06:16 12/16/24 06:16 Other Lab Results: Lab Results x24hrs 12/14/24 12/14/24 12/14/24 Range/Units 06:03 04:47 00:04 WBC 4.5 L (4.8-10.8) x10^3/uL RBC 2.55 L (4.20-5.40) 10^6/uL Hgb 8.0 L (12.0-16.0) g/dL Hct 23.9 L (37.0-47.0) % MCV 93.7 (81.0-99.0) fL MCH 31.4 H (27.0-31.0) pg MCHC 33.5 (32.0-36.0) g/dL RDW 15.9 H (12.0-15.0) % Plt Count 91 L (130-450) 10^3/uL MPV 10.3 (7.9-10.8) fL Neut # (Auto) 3.6 (1.5-6.6) 10^3/uL Lymph # (Auto) 0.6 L (1.5-3.5) 10^3/uL [place] # (Auto) 0.2 (0.0-1.0) 10^3/uL Eos # (Auto) 0.1 (0.0-0.7) 10^3/uL Baso # (Auto) 0.0 (0.0-0.1) 10^3/uL Absolute Nucleated RBC 0.00 x10^3/uL Nucleated RBC % 0.0 /100WBC PT (9.9-12.6) secs INR (0.8-1.2) APTT (24.9-33.3) secs Sodium 131 L (135-145) mmol/L Potassium 2.8 L (3.5-4.5) mmol/L Chloride 96 L (101-111) mmol/L Carbon Dioxide 24 (21-32) mmol/L Anion Gap 11.0 (6-13) BUN 7 (6-20) mg/dL Creatinine 0.5 L (0.6-1.3) mg/dL Estimated GFR (MDRD) 125 (>89) Glucose 170 H (74-104) mg/dL POC Whole Bld Glucose 208 143 (70-100) mg/dL Calcium 7.8 L (8.5-10.3) mg/dL Phosphorus (2.5-5.0) mg/dL Magnesium (1.7-2.3) mg/dL Total Bilirubin (0.2-1.0) mg/dL AST (10-42) IU/L ALT (10-60) IU/L Alkaline Phosphatase (42-121) IU/L Total Protein (6.4-8.9) g/dL Albumin (3.2-5.5) g/dL Globulin (2.1-4.2) g/dL Albumin/Globulin Ratio (1.0-2.2) Lipase (11-82) U/L Urine Color Urine Clarity (CLEAR) Urine pH (5.0-7.5) PH Ur Specific [place] (1.002-1.030) Urine Protein (NEGATIVE) mg/dL Urine Glucose (UA) (NEGATIVE) mg/dL Urine Ketones (NEGATIVE) mg/dL Urine Occult Blood (NEGATIVE) Urine Nitrite (NEGATIVE) Urine Bilirubin (NEGATIVE) Urine Urobilinogen (NORMAL) E.U./dL Ur Leukocyte Esterase (NEGATIVE) Urine RBC (0-5) /HPF Urine WBC (0-5) /HPF Ur Squamous Epith Cells (<= Few) Urine Bacteria (None Seen) /HPF Urine Casts /LPF Ur Microscopic Review Urine Culture Comments Ethyl Alcohol mg/dL Blood Type Antibody Screen 12/13/24 12/13/24 12/13/24 Range/Units 20:34 19:53 16:55 WBC (4.8-10.8) x10^3/uL RBC (4.20-5.40) 10^6/uL Hgb 8.6 L (12.0-16.0) g/dL Hct 26.6 L (37.0-47.0) % MCV (81.0-99.0) fL MCH (27.0-31.0) pg MCHC (32.0-36.0) g/dL RDW (12.0-15.0) % Plt Count (130-450) 10^3/uL MPV (7.9-10.8) fL Neut # (Auto) (1.5-6.6) 10^3/uL Lymph # (Auto) (1.5-3.5) 10^3/uL [place] # (Auto) (0.0-1.0) 10^3/uL Eos # (Auto) (0.0-0.7) 10^3/uL Baso # (Auto) (0.0-0.1) 10^3/uL Absolute Nucleated RBC x10^3/uL Nucleated RBC % /100WBC PT (9.9-12.6) secs INR (0.8-1.2) APTT (24.9-33.3) secs Sodium (135-145) mmol/L Potassium (3.5-4.5) mmol/L Chloride (101-111) mmol/L Carbon Dioxide (21-32) mmol/L Anion Gap (6-13) BUN (6-20) mg/dL Creatinine (0.6-1.3) mg/dL Estimated GFR (MDRD) (>89) Glucose (74-104) mg/dL POC Whole Bld Glucose 79 (70-100) mg/dL Calcium (8.5-10.3) mg/dL Phosphorus (2.5-5.0) mg/dL Magnesium (1.7-2.3) mg/dL Total Bilirubin (0.2-1.0) mg/dL AST (10-42) IU/L ALT (10-60) IU/L Alkaline Phosphatase (42-121) IU/L Total Protein (6.4-8.9) g/dL Albumin (3.2-5.5) g/dL Globulin (2.1-4.2) g/dL Albumin/Globulin Ratio (1.0-2.2) Lipase (11-82) U/L Urine Color YELLOW Urine Clarity CLEAR (CLEAR) Urine pH 6.0 (5.0-7.5) PH Ur Specific [place] 1.030 (1.002-1.030) Urine Protein 30 H (NEGATIVE) mg/dL Urine Glucose (UA) NEGATIVE (NEGATIVE) mg/dL Urine Ketones >=80 H (NEGATIVE) mg/dL Urine Occult Blood SMALL (NEGATIVE) Urine Nitrite NEGATIVE (NEGATIVE) Urine Bilirubin NEGATIVE (NEGATIVE) Urine Urobilinogen 0.2 (NORMAL) (NORMAL) E.U./dL Ur Leukocyte Esterase NEGATIVE (NEGATIVE) Urine RBC 0-5 (0-5) /HPF Urine WBC 0-3 (0-5) /HPF Ur Squamous Epith Cells MANY Squamous H (<= Few) Urine Bacteria Rare (None Seen) /HPF Urine Casts 3-5 Hyaline Casts /LPF Ur Microscopic Review INDICATED Urine Culture Comments NOT INDICATED Ethyl Alcohol mg/dL Blood Type Antibody Screen 12/13/24 Range/Units 16:30 WBC 14.1 H (4.8-10.8) x10^3/uL RBC 3.19 L (4.20-5.40) 10^6/uL Hgb 10.0 L (12.0-16.0) g/dL Hct 30.5 L (37.0-47.0) % MCV 95.6 (81.0-99.0) fL MCH 31.3 H (27.0-31.0) pg MCHC 32.8 (32.0-36.0) g/dL RDW 15.9 H (12.0-15.0) % Plt Count 173 (130-450) 10^3/uL MPV 9.5 (7.9-10.8) fL Neut # (Auto) 12.3 H (1.5-6.6) 10^3/uL Lymph # (Auto) 1.1 L (1.5-3.5) 10^3/uL [place] # (Auto) 0.6 (0.0-1.0) 10^3/uL Eos # (Auto) 0.0 (0.0-0.7) 10^3/uL Baso # (Auto) 0.1 (0.0-0.1) 10^3/uL Absolute Nucleated RBC 0.00 x10^3/uL Nucleated RBC % 0.0 /100WBC PT 13.4 H (9.9-12.6) secs INR 1.2 (0.8-1.2) APTT 27.1 (24.9-33.3) secs Sodium 133 L (135-145) mmol/L Potassium 3.5 (3.5-4.5) mmol/L Chloride 91 L (101-111) mmol/L Carbon Dioxide 15 L (21-32) mmol/L Anion Gap 27.0 H (6-13) BUN 9 (6-20) mg/dL Creatinine 0.5 L (0.6-1.3) mg/dL Estimated GFR (MDRD) 125 (>89) Glucose 57 L* (74-104) mg/dL POC Whole Bld Glucose (70-100) mg/dL Calcium 8.6 (8.5-10.3) mg/dL Phosphorus 2.7 (2.5-5.0) mg/dL Magnesium 1.6 L (1.7-2.3) mg/dL Total Bilirubin 2.4 H (0.2-1.0) mg/dL AST 83 H (10-42) IU/L ALT 28 (10-60) IU/L Alkaline Phosphatase 305 H (42-121) IU/L Total Protein 6.9 (6.4-8.9) g/dL Albumin 4.1 (3.2-5.5) g/dL Globulin 2.8 (2.1-4.2) g/dL Albumin/Globulin Ratio 1.5 (1.0-2.2) Lipase 315 H (11-82) U/L Urine Color Urine Clarity (CLEAR) Urine pH (5.0-7.5) PH Ur Specific [place] (1.002-1.030) Urine Protein (NEGATIVE) mg/dL Urine Glucose (UA) (NEGATIVE) mg/dL Urine Ketones (NEGATIVE) mg/dL Urine Occult Blood (NEGATIVE) Urine Nitrite (NEGATIVE) Urine Bilirubin (NEGATIVE) Urine Urobilinogen (NORMAL) E.U./dL Ur Leukocyte Esterase (NEGATIVE) Urine RBC (0-5) /HPF Urine WBC (0-5) /HPF Ur Squamous Epith Cells (<= Few) Urine Bacteria (None Seen) /HPF Urine Casts /LPF Ur Microscopic Review Urine Culture Comments Ethyl Alcohol 81.3 mg/dL Blood Type A POSITIVE Antibody Screen NEGATIVE Review of Systems Her mentation was such that she could converse but a review of symptoms would prove challenging. Exam Exam Vital Signs: Vital Signs x48h Temp Pulse Pulse Resp BP BP BP 12/14/24 10:25 105 H 18 91/67 12/14/24 10:20 36.1 C L 107 H 18 99/68 12/14/24 10:15 108 H 16 95/72 12/14/24 10:10 108 H 16 106/74 12/14/24 10:05 36.3 C L 101 H 14 102/70 12/14/24 10:00 98 13 104/71 12/14/24 09:55 100 14 105/73 12/14/24 09:52 36.1 C L 101 H 10 L 106/74 12/14/24 07:40 36.7 C 108 H 18 108/76 12/14/24 03:52 12/14/24 03:52 36.7 C 110 H 20 109/73 Pulse Ox O2 Flow Rate 12/14/24 10:25 93 12/14/24 10:20 95 12/14/24 10:15 94 12/14/24 10:10 97 12/14/24 10:05 100 12/14/24 10:00 100 12/14/24 09:55 100 12/14/24 09:52 100 12/14/24 07:40 96 1 12/14/24 03:52 94 1 12/14/24 03:52 91 L General: 64 year old thin female, appears much older than stated age, well developed, well nourished HEENT: Normocephalic, atraumatic, extraocular movement intact, mucous membranes pink and moist, sclera anicteric and slightly injected Neck: Supple without pain on palpation, mass or bruit Cardiac: Regular rate and rhythm without rub, gallop, or murmur Chest: Clear to auscultation bilaterally Abdomen: Soft, mildly tender without peritoneal signs, normoactive bowel sounds, no hepatomegaly, no splenomegaly Genitourinary: Deferred Rectal: Deferred Extremities: No gross neurovascular problem, no clubbing, cyanosis or edema Gait: Did not evaluate as I did not get her out of bed Psychiatric: Alert and oriented to person place and time, asks and answers questions appropriately, mood and affect are a bit blunted Conclusion/Plan Problem List (1) Hematemesis of unknown etiology: Plan: EGD with possible biopsies and/or polypectomies. Indications, procedure, alternatives (such as barium swallow and even no procedure at all) and risks including but not limited to perforation requiring operative repair, bleeding with its risks, and were fully explained to her. I anthony diagrams explaining the esophageal and stomach anatomy and the proposed procedure and handed it to her. Review of her history does not reveal any significant systemic disease that would contraindicate use of conscious sedation or MAC anesthesia. All questions were fully answered. Verbal and written consent was obtained. The patient in preparation for her scope has been n.p.o. 45 minutes of [id number] time spent with the patient the majority of which was spent in discussion, coordination of their care and completion of the requisite paperwork CPT 57757 Lab Results Lab results reviewed: Yes 12/16/24 06:16 12/16/24 06:16
[2024-12-14] MEDS: MAGNESIUM SULFATE 2 GRAM 2 GM/50 ML BAG IV ONE (12:04)
[2024-12-14 14:06] LABS: HCT - HEMATOCRIT 24.8 % (37.0-47.0); HGB - HEMOGLOBIN 8.4 g/dL (12.0-16.0)
--- NOTE | 2024-12-14 14:22 | PROVIDER PROGRESS NOTE ---
Subjective Prog Note Date Prog Note Date: 12/14/24 Subjective Pt reports feeling: Improved Current Medications Current Medications Current Medications: Current Medications Generic Name Dose Route Start Last Admin Trade Name Nery PRN Reason Stop Dose Admin Acetaminophen 650 mg 12/13/24 19:03 12/14/24 07:49 Acetaminophen 325 Mg Tablet PO 650 mg Q4HR PRN Administration Pain 1 to 4, or Fever Chlordiazepoxide HCl 25 mg 12/13/24 19:03 12/14/24 12:04 Chlordiazepoxide 25 Mg Capsule PO 25 mg Q6HR AVERY Administration Lorazepam 1 mg 12/13/24 19:03 Lorazepam 1 Mg Tablet PO Q1H PRN CIWA > 8 Protocol Ondansetron HCl 4 mg 12/13/24 19:03 12/14/24 10:00 Ondansetron 4 Mg/2 Ml Vial IVP 4 mg Q6HR PRN Administration Nausea / Vomiting Ondansetron HCl 4 mg 12/13/24 19:03 Ondansetron Odt 4 Mg Tablet TL Q6HR PRN Nausea / Vomiting Pantoprazole Sodium 40 mg 12/13/24 21:00 12/14/24 07:40 Pantoprazole 40 Mg Vial IVP 40 mg BID AVERY Administration Multivit/Folic Acid/Iron 1 tab 12/14/24 09:00 12/14/24 11:14 Vitamin Tablet PO Not Given DAILY AVERY Prochlorperazine Edisylate 10 mg 12/13/24 20:26 Prochlorperazine 10 Mg/2 Ml Vial IVP Q6HR PRN Nausea / Vomiting Sodium Chloride 10 ml 12/13/24 19:03 Sodium Chloride Flush 0.9% 10 Ml Syringe IVP PRN PRN NEEDED PER PROVIDER ORDERS Sodium Chloride 10 ml 12/14/24 01:00 12/14/24 11:14 Sodium Chloride Flush 0.9% 10 Ml Syringe IVP Not Given 0100,0900,1700 AVERY Sucralfate 1 gm 12/13/24 19:03 12/14/24 12:04 Sucralfate 1 Gm/10 Ml Udc PO 1 gm 0700,1100,1600,2200 AVERY Administration Thiamine HCl 100 mg 12/14/24 09:00 12/14/24 11:13 Thiamine 100 Mg Tablet PO Not Given DAILY AVERY Objective Vital Signs/Intake & Output Reviewed Vital Signs: Yes Vital Signs: Vital Signs x48h Temp Pulse Pulse Resp BP BP Pulse Ox 12/14/24 12:05 36.4 C L 107 H 16 86/63 L 98 12/14/24 11:35 36.4 C L 109 H 16 104/75 94 12/14/24 11:05 36.4 C L 112 H 18 105/74 95 12/14/24 10:50 36.5 C 112 H 18 108/73 94 12/14/24 10:35 36.4 C L 114 H 18 88/65 L 95 12/14/24 10:25 105 H 18 91/67 93 12/14/24 10:20 36.1 C L 107 H 18 99/68 95 12/14/24 10:15 108 H 16 95/72 94 12/14/24 10:10 108 H 16 106/74 97 12/14/24 10:05 36.3 C L 101 H 14 102/70 100 12/14/24 10:00 98 13 104/71 100 12/14/24 09:55 100 14 105/73 100 12/14/24 09:52 36.1 C L 101 H 10 L 106/74 100 12/14/24 07:40 36.7 C 108 H 18 108/76 96 12/14/24 07:00 O2 Flow Rate 12/14/24 12:05 12/14/24 11:35 12/14/24 11:05 12/14/24 10:50 12/14/24 10:35 12/14/24 10:25 12/14/24 10:20 12/14/24 10:15 12/14/24 10:10 12/14/24 10:05 12/14/24 10:00 12/14/24 09:55 12/14/24 09:52 12/14/24 07:40 1 12/14/24 07:00 1 Intake & Output: Intake & Output 12/11/24 12/12/24 12/13/24 12/14/24 23:59 23:59 23:59 23:59 Intake Total 1195 / 1195 2628 / 2628 Balance 1195 / 1195 2628 / 2628 Weight (kg) 45 kg 45 kg Objective General Appearance: positive No acute distress and Alert Eyes Bilateral: positive Normal inspection Respiratory: positive Chest non-tender and No respiratory distress Cardiovascular: positive Tachycardia Abdomen: positive Tenderness Skin: positive Color nml Extremities: positive Non-tender Neurologic/Psychiatric: positive Oriented x3 Lab Results 12/14/24 13:56 12/14/24 04:47 Other Labs: Lab Results x24hrs 12/14/24 12/14/24 12/14/24 Range/Units 13:56 06:03 04:47 WBC 4.5 L (4.8-10.8) x10^3/uL RBC 2.55 L (4.20-5.40) 10^6/uL Hgb 8.4 L 8.0 L (12.0-16.0) g/dL Hct 24.8 L 23.9 L (37.0-47.0) % MCV 93.7 (81.0-99.0) fL MCH 31.4 H (27.0-31.0) pg MCHC 33.5 (32.0-36.0) g/dL RDW 15.9 H (12.0-15.0) % Plt Count 91 L (130-450) 10^3/uL MPV 10.3 (7.9-10.8) fL Neut # (Auto) 3.6 (1.5-6.6) 10^3/uL Lymph # (Auto) 0.6 L (1.5-3.5) 10^3/uL Steele # (Auto) 0.2 (0.0-1.0) 10^3/uL Eos # (Auto) 0.1 (0.0-0.7) 10^3/uL Baso # (Auto) 0.0 (0.0-0.1) 10^3/uL Absolute Nucleated RBC 0.00 x10^3/uL Nucleated RBC % 0.0 /100WBC PT (9.9-12.6) secs INR (0.8-1.2) APTT (24.9-33.3) secs Sodium 131 L (135-145) mmol/L Potassium 2.8 L (3.5-4.5) mmol/L Chloride 96 L (101-111) mmol/L Carbon Dioxide 24 (21-32) mmol/L Anion Gap 11.0 (6-13) BUN 7 (6-20) mg/dL Creatinine 0.5 L (0.6-1.3) mg/dL Estimated GFR (MDRD) 125 (>89) Glucose 170 H (74-104) mg/dL POC Whole Bld Glucose 208 (70-100) mg/dL Calcium 7.8 L (8.5-10.3) mg/dL Phosphorus (2.5-5.0) mg/dL Magnesium (1.7-2.3) mg/dL Total Bilirubin (0.2-1.0) mg/dL AST (10-42) IU/L ALT (10-60) IU/L Alkaline Phosphatase (42-121) IU/L Total Protein (6.4-8.9) g/dL Albumin (3.2-5.5) g/dL Globulin (2.1-4.2) g/dL Albumin/Globulin Ratio (1.0-2.2) Lipase (11-82) U/L Urine Color Urine Clarity (CLEAR) Urine pH (5.0-7.5) PH Ur Specific [place] (1.002-1.030) Urine Protein (NEGATIVE) mg/dL Urine Glucose (UA) (NEGATIVE) mg/dL Urine Ketones (NEGATIVE) mg/dL Urine Occult Blood (NEGATIVE) Urine Nitrite (NEGATIVE) Urine Bilirubin (NEGATIVE) Urine Urobilinogen (NORMAL) E.U./dL Ur Leukocyte Esterase (NEGATIVE) Urine RBC (0-5) /HPF Urine WBC (0-5) /HPF Ur Squamous Epith Cells (<= Few) Urine Bacteria (None Seen) /HPF Urine Casts /LPF Ur Microscopic Review Urine Culture Comments Ethyl Alcohol mg/dL Blood Type Antibody Screen 12/14/24 12/13/24 12/13/24 Range/Units 00:04 20:34 19:53 WBC (4.8-10.8) x10^3/uL RBC (4.20-5.40) 10^6/uL Hgb 8.6 L (12.0-16.0) g/dL Hct 26.6 L (37.0-47.0) % MCV (81.0-99.0) fL MCH (27.0-31.0) pg MCHC (32.0-36.0) g/dL RDW (12.0-15.0) % Plt Count (130-450) 10^3/uL MPV (7.9-10.8) fL Neut # (Auto) (1.5-6.6) 10^3/uL Lymph # (Auto) (1.5-3.5) 10^3/uL Steele # (Auto) (0.0-1.0) 10^3/uL Eos # (Auto) (0.0-0.7) 10^3/uL Baso # (Auto) (0.0-0.1) 10^3/uL Absolute Nucleated RBC x10^3/uL Nucleated RBC % /100WBC PT (9.9-12.6) secs INR (0.8-1.2) APTT (24.9-33.3) secs Sodium (135-145) mmol/L Potassium (3.5-4.5) mmol/L Chloride (101-111) mmol/L Carbon Dioxide (21-32) mmol/L Anion Gap (6-13) BUN (6-20) mg/dL Creatinine (0.6-1.3) mg/dL Estimated GFR (MDRD) (>89) Glucose (74-104) mg/dL POC Whole Bld Glucose 143 79 (70-100) mg/dL Calcium (8.5-10.3) mg/dL Phosphorus (2.5-5.0) mg/dL Magnesium (1.7-2.3) mg/dL Total Bilirubin (0.2-1.0) mg/dL AST (10-42) IU/L ALT (10-60) IU/L Alkaline Phosphatase (42-121) IU/L Total Protein (6.4-8.9) g/dL Albumin (3.2-5.5) g/dL Globulin (2.1-4.2) g/dL Albumin/Globulin Ratio (1.0-2.2) Lipase (11-82) U/L Urine Color Urine Clarity (CLEAR) Urine pH (5.0-7.5) PH Ur Specific [place] (1.002-1.030) Urine Protein (NEGATIVE) mg/dL Urine Glucose (UA) (NEGATIVE) mg/dL Urine Ketones (NEGATIVE) mg/dL Urine Occult Blood (NEGATIVE) Urine Nitrite (NEGATIVE) Urine Bilirubin (NEGATIVE) Urine Urobilinogen (NORMAL) E.U./dL Ur Leukocyte Esterase (NEGATIVE) Urine RBC (0-5) /HPF Urine WBC (0-5) /HPF Ur Squamous Epith Cells (<= Few) Urine Bacteria (None Seen) /HPF Urine Casts /LPF Ur Microscopic Review Urine Culture Comments Ethyl Alcohol mg/dL Blood Type Antibody Screen 12/13/24 12/13/24 Range/Units 16:55 16:30 WBC 14.1 H (4.8-10.8) x10^3/uL RBC 3.19 L (4.20-5.40) 10^6/uL Hgb 10.0 L (12.0-16.0) g/dL Hct 30.5 L (37.0-47.0) % MCV 95.6 (81.0-99.0) fL MCH 31.3 H (27.0-31.0) pg MCHC 32.8 (32.0-36.0) g/dL RDW 15.9 H (12.0-15.0) % Plt Count 173 (130-450) 10^3/uL MPV 9.5 (7.9-10.8) fL Neut # (Auto) 12.3 H (1.5-6.6) 10^3/uL Lymph # (Auto) 1.1 L (1.5-3.5) 10^3/uL Steele # (Auto) 0.6 (0.0-1.0) 10^3/uL Eos # (Auto) 0.0 (0.0-0.7) 10^3/uL Baso # (Auto) 0.1 (0.0-0.1) 10^3/uL Absolute Nucleated RBC 0.00 x10^3/uL Nucleated RBC % 0.0 /100WBC PT 13.4 H (9.9-12.6) secs INR 1.2 (0.8-1.2) APTT 27.1 (24.9-33.3) secs Sodium 133 L (135-145) mmol/L Potassium 3.5 (3.5-4.5) mmol/L Chloride 91 L (101-111) mmol/L Carbon Dioxide 15 L (21-32) mmol/L Anion Gap 27.0 H (6-13) BUN 9 (6-20) mg/dL Creatinine 0.5 L (0.6-1.3) mg/dL Estimated GFR (MDRD) 125 (>89) Glucose 57 L* (74-104) mg/dL POC Whole Bld Glucose (70-100) mg/dL Calcium 8.6 (8.5-10.3) mg/dL Phosphorus 2.7 (2.5-5.0) mg/dL Magnesium 1.6 L (1.7-2.3) mg/dL Total Bilirubin 2.4 H (0.2-1.0) mg/dL AST 83 H (10-42) IU/L ALT 28 (10-60) IU/L Alkaline Phosphatase 305 H (42-121) IU/L Total Protein 6.9 (6.4-8.9) g/dL Albumin 4.1 (3.2-5.5) g/dL Globulin 2.8 (2.1-4.2) g/dL Albumin/Globulin Ratio 1.5 (1.0-2.2) Lipase 315 H (11-82) U/L Urine Color YELLOW Urine Clarity CLEAR (CLEAR) Urine pH 6.0 (5.0-7.5) PH Ur Specific [place] 1.030 (1.002-1.030) Urine Protein 30 H (NEGATIVE) mg/dL Urine Glucose (UA) NEGATIVE (NEGATIVE) mg/dL Urine Ketones >=80 H (NEGATIVE) mg/dL Urine Occult Blood SMALL (NEGATIVE) Urine Nitrite NEGATIVE (NEGATIVE) Urine Bilirubin NEGATIVE (NEGATIVE) Urine Urobilinogen 0.2 (NORMAL) (NORMAL) E.U./dL Ur Leukocyte Esterase NEGATIVE (NEGATIVE) Urine RBC 0-5 (0-5) /HPF Urine WBC 0-3 (0-5) /HPF Ur Squamous Epith Cells MANY Squamous H (<= Few) Urine Bacteria Rare (None Seen) /HPF Urine Casts 3-5 Hyaline Casts /LPF Ur Microscopic Review INDICATED Urine Culture Comments NOT INDICATED Ethyl Alcohol 81.3 mg/dL Blood Type A POSITIVE Antibody Screen NEGATIVE Assessment/Plan Problem List (1) Acute upper gastrointestinal bleeding: Impression: Secondary to alcohol abuse Underwent EGD today, which showed a small Payton-Bray tear Continue PPI Continue to trend hemoglobin For 1 more day Hemoglobin hit its mady this morning at 8, this afternoon is up to 8.4. She still has blood pressure 86/63 with heart rate 107, indicating that she is not quite stabilized for discharge Continue Carafate Okay for low fiber diet (2) Alcohol abuse: Impression: Patient reports drinking 1-2 shots of whiskey a day, and that her last drink was 6 days ago. Of note, significant other reports that these "shots" are likely more normal glass size. Also, she had an elevated ethanol level in the ED Evidence of liver disease on CT, likely secondary to this I have ordered CIWA protocol with as needed Ativan Continue Librium 25 mg p.o. every 6 hours 12/14: If my suspicions are correct, and she is still actively drinking up until the point of her presentation to the hospital, tomorrow she will have significant withdrawal symptoms. We will monitor her for signs and symptoms of alcohol withdrawal/delirium tremens. I have ordered Ativan 1 mg IV and p.o. to manage this (3) Metabolic acidosis: Impression: Metabolic acidosis was due to alcohol use and dehydration, it is resolved after IVF Encouraging oral intake (4) Elevated LFTs: Impression: Elevated LFTs at baseline. Needs aggressive alcohol cessation counseling
[2024-12-14] MEDS ORDERED: LORazepam 2 MG/ML VIAL IVP PRN (14:42)
[2024-12-14] MEDS: PROCHLORPERAZINE 10 MG/2 ML VIAL IVP PRN (15:41)
[2024-12-14 21:49] LABS: BUN - BLOOD UREA NITROGEN 5.0 mg/dL (6-20); CARBON DIOXIDE - CO2 25.0 mmol/L (21-32); CREATININE 0.4 mg/dL (0.6-1.3); GFR - MDRD 162.0 (>89)
[2024-12-14 21:52] LABS: HCT - HEMATOCRIT 24.7 % (37.0-47.0); HGB - HEMOGLOBIN 8.3 g/dL (12.0-16.0)
[2024-12-14] MEDS: SODIUM CHLORIDE 0.9% 1,000 ML IV SCH (22:19)
[2024-12-15] MEDS: SCOPOLAMINE PATCH TOP SCH (05:58)
[2024-12-15 07:38] LABS: BUN - BLOOD UREA NITROGEN 4.0 mg/dL (6-20); CARBON DIOXIDE - CO2 23.0 mmol/L (21-32); CREATININE 0.4 mg/dL (0.6-1.3); GFR - MDRD 162.0 (>89)
[2024-12-15 08:06] LABS: HCT - HEMATOCRIT 24.1 % (37.0-47.0); HGB - HEMOGLOBIN 8.2 g/dL (12.0-16.0); MEAN PLATELET VOLUME 10.9 fL (7.9-10.8); NRBC ABSOLUTE COUNT (AUTO) 0.00 x10^3/uL; NUCLEATED RED BLOOD CELLS AUTO 0.0 /100WBC; PLT - PLATELET COUNT 95 10^3/uL (130-450); RED CELL DISTRIBUTION WIDTH 15.9 % (12.0-15.0)
[2024-12-15] MEDS: SODIUM CHLORIDE FLUSH 0.9% 10 ML SYRINGE IVP PRN (11:46)
[2024-12-15] MEDS: SODIUM CHLORIDE 0.9% 1,000 ML IV ONE (11:46)
[2024-12-15] MEDS: MORPHINE 2 MG/ML CARPUJECT IVP PRN (12:13)
[2024-12-15] MEDS: NICOTINE 7 MG PATCH TOP SCH (13:18)
[2024-12-15 14:46] LABS: CARBON DIOXIDE - CO2 22.0 mmol/L (21-32)
[2024-12-15 14:51] LABS: ALT ALANINE AMINOTRANSFERASE 27.0 IU/L (10-60); AST ASPARTATE AMINOTRANSFERASE 125.0 IU/L (10-42); BUN - BLOOD UREA NITROGEN 4.0 mg/dL (6-20); CREATININE 0.3 mg/dL (0.6-1.3); GFR - MDRD 225.0 (>89)
--- NOTE | 2024-12-15 15:33 | PROVIDER PROGRESS NOTE ---
Subjective Prog Note Date Prog Note Date: 12/15/24 Subjective Pt reports feeling: No change Current Medications Current Medications Current Medications: Current Medications Generic Name Dose Route Start Last Admin Trade Name Freq PRN Reason Stop Dose Admin Acetaminophen 650 mg 12/13/24 19:03 12/15/24 03:25 Acetaminophen 325 Mg Tablet PO 650 mg Q4HR PRN Administration Pain 1 to 4, or Fever Sodium Chloride 1,000 mls @ 200 mls/hr 12/15/24 16:00 Normal Saline 0.9% IV .Q5H AVERY Lorazepam 1 mg 12/13/24 19:03 Lorazepam 1 Mg Tablet PO Q1H PRN CIWA > 8 Protocol Lorazepam 1 mg 12/14/24 14:42 Lorazepam 2 Mg/Ml Vial IVP Q30M PRN CIWA >8 Protocol Morphine Sulfate 2 mg 12/15/24 04:36 12/15/24 12:13 Morphine 2 Mg/Ml Carpuject IVP 2 mg Q2HR PRN Administration Severe Pain (Level 7-10) Nicotine 1 patch 12/15/24 13:05 12/15/24 13:18 Nicotine 7 Mg Patch TOP Not Given DAILY AVERY Ondansetron HCl 4 mg 12/13/24 19:03 12/15/24 04:20 Ondansetron 4 Mg/2 Ml Vial IVP 4 mg Q6HR PRN Administration Nausea / Vomiting Ondansetron HCl 4 mg 12/13/24 19:03 Ondansetron Odt 4 Mg Tablet TL Q6HR PRN Nausea / Vomiting Pantoprazole Sodium 40 mg 12/13/24 21:00 12/15/24 08:58 Pantoprazole 40 Mg Vial IVP 40 mg BID AVERY Administration Multivit/Folic Acid/Iron 1 tab 12/14/24 09:00 12/15/24 08:58 Vitamin Tablet PO 1 tab DAILY AVERY Administration Prochlorperazine Edisylate 10 mg 12/13/24 20:26 12/14/24 15:41 Prochlorperazine 10 Mg/2 Ml Vial IVP 10 mg Q6HR PRN Administration Nausea / Vomiting Scopolamine HBr 1 patch 12/15/24 05:00 12/15/24 05:58 Scopolamine Patch TOP 1 patch Q3D AVERY Administration Sodium Chloride 10 ml 12/13/24 19:03 12/15/24 12:14 Sodium Chloride Flush 0.9% 10 Ml Syringe IVP 10 ml PRN PRN Administration NEEDED PER PROVIDER ORDERS Sodium Chloride 10 ml 12/14/24 01:00 12/15/24 08:58 Sodium Chloride Flush 0.9% 10 Ml Syringe IVP 10 ml 0100,0900,1700 AVERY Administration Sucralfate 1 gm 12/13/24 19:03 12/15/24 11:14 Sucralfate 1 Gm/10 Ml Udc PO 1 gm 0700,1100,1600,2200 AVERY Administration Thiamine HCl 100 mg 12/14/24 09:00 12/15/24 08:59 Thiamine 100 Mg Tablet PO 100 mg DAILY AVERY Administration Objective Vital Signs/Intake & Output Reviewed Vital Signs: Yes Vital Signs: Vital Signs x48h Temp Pulse Resp BP BP Pulse Ox 12/15/24 13:00 36.4 C L 101 H 22 112/76 97 12/15/24 08:15 36.7 C 107 H 22 97/70 97 Intake & Output: Intake & Output 12/12/24 12/13/24 12/14/24 12/15/24 23:59 23:59 23:59 23:59 Intake Total 1195 / 1195 3498 / 3498 3297 / 3297 Balance 1195 / 1195 3498 / 3498 3297 / 3297 Weight (kg) 45 kg 45 kg Objective General Appearance: positive No acute distress and Alert Eyes Bilateral: positive Normal inspection Respiratory: positive Chest non-tender and No respiratory distress Cardiovascular: positive Tachycardia Abdomen: positive Tenderness Skin: positive Color nml Extremities: positive Non-tender Neurologic/Psychiatric: positive Oriented x3 Lab Results 12/15/24 07:12 12/15/24 14:35 Other Labs: Lab Results x24hrs 12/15/24 12/15/24 12/14/24 Range/Units 14:35 07:12 21:27 WBC 6.1 (4.8-10.8) x10^3/uL RBC 2.59 L (4.20-5.40) 10^6/uL Hgb 8.2 L 8.3 L (12.0-16.0) g/dL Hct 24.1 L 24.7 L (37.0-47.0) % MCV 93.1 (81.0-99.0) fL MCH 31.7 H (27.0-31.0) pg MCHC 34.0 (32.0-36.0) g/dL RDW 15.9 H (12.0-15.0) % Plt Count 95 L (130-450) 10^3/uL MPV 10.9 H (7.9-10.8) fL Neut # (Auto) 4.8 (1.5-6.6) 10^3/uL Lymph # (Auto) 0.9 L (1.5-3.5) 10^3/uL [place] # (Auto) 0.3 (0.0-1.0) 10^3/uL Eos # (Auto) 0.1 (0.0-0.7) 10^3/uL Baso # (Auto) 0.0 (0.0-0.1) 10^3/uL Absolute Nucleated RBC 0.00 x10^3/uL Nucleated RBC % 0.0 /100WBC Sodium 129 L 128 L 130 L (135-145) mmol/L Potassium 4.0 4.1 2.9 L (3.5-4.5) mmol/L Chloride 102 99 L 98 L (101-111) mmol/L Carbon Dioxide 22 23 25 (21-32) mmol/L Anion Gap 5.0 L 6.0 7.0 (6-13) BUN 4 L 4 L 5 L (6-20) mg/dL Creatinine 0.3 L 0.4 L 0.4 L (0.6-1.3) mg/dL Estimated GFR (MDRD) 225 162 162 (>89) Glucose 102 126 H 131 H (74-104) mg/dL Calcium 7.7 L 8.1 L 8.1 L (8.5-10.3) mg/dL Total Bilirubin 2.2 H (0.2-1.0) mg/dL AST 125 H (10-42) IU/L ALT 27 (10-60) IU/L Alkaline Phosphatase 256 H (42-121) IU/L Total Protein 5.1 L (6.4-8.9) g/dL Albumin 2.9 L (3.2-5.5) g/dL Globulin 2.2 (2.1-4.2) g/dL Albumin/Globulin Ratio 1.3 (1.0-2.2) Lipase 201 H (11-82) U/L Assessment/Plan Problem List (1) Hyponatremia: Impression: Patient has developed a hyponatremia with a sodium level of 128 this morning. I gave her saline bolus and increase the rate of her normal saline and it increased to 129. This is likely secondary to her alcohol abuse. Will continue normal saline and I am ordering every 4 hour sodium checks until it is above 130 (2) Alcoholic pancreatitis: Impression: As patient has sobered up, and generalized withdrawal symptoms are improving, her abdominal pain is becoming more concerning. She had a elevated lipase on presentation at 315. Today, she reports that she has significant upper abdominal pain. Repeat lipase has improved to 201. CT abdomen/pelvis on presentation did not note any significant focal lesion on the pancreas and no abnormality with the biliary system. I have ordered a abdominal ultrasound. I have increased her fluids to NS at 200 as I believe that she is in alcoholic pancreatitis (3) Acute upper gastrointestinal bleeding: Impression: Secondary to alcohol abuse Underwent EGD 12/14, which showed a small Payton-Bray tear Continue PPI Continue Carafate Okay for low fiber diet (4) Alcohol abuse: Impression: Patient reports drinking 1-2 shots of whiskey a day, and that her last drink was 6 days ago. Of note, significant other reports that these "shots" are likely more normal glass size. Also, she had an elevated ethanol level in the ED Evidence of liver disease on CT, likely secondary to this I have ordered CIWA protocol with as needed Ativan Continue Librium 25 mg p.o. every 6 hours 12/14: If my suspicions are correct, and she is still actively drinking up until the point of her presentation to the hospital, tomorrow she will have significant withdrawal symptoms. We will monitor her for signs and symptoms of alcohol withdrawal/delirium tremens. I have ordered Ativan 1 mg IV and p.o. to manage this (5) Metabolic acidosis: Impression: Metabolic acidosis was due to alcohol use and dehydration, it is resolved after IVF Encouraging oral intake (6) Elevated LFTs: Impression: Elevated LFTs at baseline. Needs aggressive alcohol cessation counseling
--- NOTE | 2024-12-15 16:24 | Ultrasound Report ---
PROCEDURE: US Abdomen Limited INDICATIONS: Upper abdominal pain, liver disease, alcohol use TECHNIQUE: Real-time focused scanning was performed of the abdomen, with image documentation. COMPARISONS: CT abdomen and pelvis dated 12/13/2024. FINDINGS: Liver: There is diffuse increased echogenicity of the liver consistent with diffuse hepatic steatosis. The main portal vein is patent. The technologist did not identify significant flow within the main portal vein, but that was secondary to a velocity setting on the machine. There is slow flow in the main portal vein. The main portal vein was widely patent [address] Sclerotic change. No liver mass Gallbladder: Gallbladder sludge. Mild wall thickening, nonspecific in the setting of diffuse hepatic cellular dysfunction. No pain on examination. Biliary ducts: Intrahepatic bile ducts are non-dilated. Extrahepatic bile duct caliber measures 2 mm. Normal is 6-7 mm or less in diameter, or 10 mm or less post-cholecystectomy. Pancreas: Visualized portions of the pancreas are sonographically normal. Right kidney: Normal in size and echotexture. Right kidney measures 9.5 cm long. No hydronephrosis or nephrolithiasis. No solid masses. No complex renal cystic lesions which require follow-up. IVC: Intrahepatic inferior vena cava is patent. Miscellaneous: Abdominal ascites is present.. IMPRESSION: 1. Cirrhosis, diffuse hepatic steatosis. 2. Main portal vein is PATENT 3. Ascites. 4. No gallstones. Nonspecific gallbladder wall thickening in the setting of hepatic dysfunction. Reviewed by: Farhan Alvarez MD on 12/15/2024 4:23 PM PDT Approved by: Farhan Alvarez MD on 12/15/2024 4:23 PM PDT Station ID: [id number]
[2024-12-15] MEDS: SODIUM CHLORIDE 0.9% 1,000 ML IV SCH (16:31)
[2024-12-15] MEDS: ENOXAPARIN 60 MG/0.6 ML SYRINGE SUBQ SCH (16:31)
[2024-12-15 16:43] VITALS: TEMP 97.7
[2024-12-15 22:52] LABS: BUN - BLOOD UREA NITROGEN 3.0 mg/dL (6-20); CARBON DIOXIDE - CO2 22.0 mmol/L (21-32); CREATININE 0.4 mg/dL (0.6-1.3); GFR - MDRD 162.0 (>89)
[2024-12-16 06:29] LABS: HCT - HEMATOCRIT 27.3 % (37.0-47.0); HGB - HEMOGLOBIN 9.0 g/dL (12.0-16.0); MEAN PLATELET VOLUME 10.7 fL (7.9-10.8); NRBC ABSOLUTE COUNT (AUTO) 0.00 x10^3/uL; NUCLEATED RED BLOOD CELLS AUTO 0.0 /100WBC; PLT - PLATELET COUNT 100 10^3/uL (130-450); RED CELL DISTRIBUTION WIDTH 16.3 % (12.0-15.0)
[2024-12-16 06:45] LABS: BUN - BLOOD UREA NITROGEN 3.0 mg/dL (6-20); CARBON DIOXIDE - CO2 21.0 mmol/L (21-32); CREATININE 0.3 mg/dL (0.6-1.3); GFR - MDRD 225.0 (>89)
--- NOTE | 2024-12-16 15:23 | Discharge Summary ---
Discharge Summary Admit Date: 12/13/24 Discharge Date: 12/16/24 Discharging Provider: Michael Posadas Primary Care Provider: Artemio Moon Code Status: Do Not Attempt Resuscitation DIAGNOSES Admission Diagnoses: Acute upper GI bleed Alcohol abuse Metabolic acidosis Elevated LFTs Discharge Diagnoses with Status of Each Condition: Portal vein thrombosis Noted on preliminary read of abdominal ultrasound. Discharging on Eliquis Acute upper GI bleed Secondary to Payton-Bray teardischarging on Protonix Alcohol abuse Has been counseled extensively Metabolic acidosis Resolved Elevated LFTs At baseline HPI History of Present Illness: 64-year-old female who reports drinking 1-2 drinks of whiskey a day has been vomiting for the past 4 days. She reports significant vomiting for 4 days, with coffee-ground/dark red emesis today. She also reports melanotic stools and abdominal pain. She reports she only has 1-2 shots of whiskey a day and her last drink was 6 days ago. Of note, her significant other reports that he thinks that is more like 1 to 2 glasses of whiskey a day at minimum and she did have an elevated alcohol content in the ER In the ER, she was noted to have a hemoglobin of 10 which is down from the 12.9 from last year. Also with leukocytosis at 14.1, CO2 15, anion gap 27, glucose 57. LFTs were elevated, but they actually appear better than when they were checked last year. UA positive for ketones. CT abdomen/pelvis was performed which shows diffuse hepatocellular disease with hepatomegaly, probable superimposed acute steatohepatitis. Also signs of portal hypertension, small ascites, diffuse mesenteric edema, as well as wall thickening of the distal ileum and right colon caused by portal enterocolopathy versus inflammatory bowel disease. Given her drop in hemoglobin secondary to hematemesis, general surgery was contacted by ER provider, and recommendation was made for medicine to place in observation for serial hemoglobin HOSPITAL COURSE Hospital Course: Patient was placed in observation and underwent EGD which showed Payton-Bray tear. Her hemoglobin was trended, and it is now going back up. She continued to have upper abdominal pain, so I ordered a lipase level and a abdominal ultrasound. Her lipase was elevated, but it had come down from the lipase on presentation. The abdominal ultrasound was positive for a portal vein thrombosis. Given that her GI bleed had resolved and she was on PPI, I initiated Lovenox at therapeutic dose while in the inpatient setting and her hemoglobin has continued to improve. She is being discharged on Eliquis and has been encouraged to follow-up with her primary care provider ALLERGIES Allergies Allergy/AdvReac Type Severity Reaction Status Date / Time Penicillins Allergy Intermediate Hives Verified 12/13/24 16:05 acetaminophen (From Percocet) Allergy Mild affect Verified 12/13/24 18:58 vision, can tolerate the vicodin oxycodone (From Percocet) Allergy Mild affect Verified 12/13/24 18:58 vision, can tolerate the vicodin MEDICATIONS Ambulatory Orders Medication Instructions Recorded Confirmed epinephrine 0.3 mg/0.3 mL 0.3 mg IM Q15M 12/13/24 0812/11 injection, auto-injector (EpiPen) ibuprofen 800 mg tablet 800 mg PO BID 12/13/2412/14 apixaban 5 mg tablet (Eliquis) 5 mg PO BID #180 tabs 0 12/16/24 omeprazole 40 mg capsule,delayed 40 mg PO BID #60 caps 12/16/24 release vit,calcium 27-ferrous 1 tab PO DAILY 30 days #30 tabs 12/16/24 fum 60 mg iron-folic acid 1 mg tablet (Trinatal Rx 1) thiamine mononitrate (vit B1) 100 100 mg PO DAILY 30 d ays #30 tabs 12/16/24 mg tablet (Vitamin B-1 (mononitrate)) tramadol 50 mg tablet 50 mg PO Q8H PRN pain #20 ta bs 12/16/24 PHYSICAL EXAM AT DISCHARGE Vital Signs: Vital Signs x48h Temp Pulse Resp BP Pulse Ox 12/16/24 15:10 36.5 C 96 16 110/80 92 General Appearance: positive No acute distress and Alert Eyes Bilateral: positive Normal inspection Neck: positive Nml inspection Respiratory: positive Chest non-tender Cardiovascular: positive Regular rate & rhythm Peripheral Pulses: positive 2+ Abdomen: positive Tenderness Skin: positive Color nml Neurologic/Psychiatric: positive Oriented x3 and Other (Slightly drowsy from IV morphine earlier today) LABS 12/16/24 06:16 12/16/24 06:16 FOLLOW UP Follow Up: With PCP TIME SPENT Time Spent in Discharge (Minutes): 39 Discharge Plan Discharge Patient Disposition: Home, Self Care Prescriptions: New thiamine mononitrate (vit B1) [Vitamin B-1 (mononitrate)] 100 mg Tablet 100 mg PO DAILY 30 Days Qty: 30 0RF Trinatal Rx 1 60 mg iron-1 mg Tablet 1 tab PO DAILY 30 Days Qty: 30 0RF Eliquis 5 mg tablet 5 mg PO BID Qty: 180 3RF omeprazole 40 mg capsule,delayed release(DR/EC) 40 mg PO BID Qty: 60 2RF tramadol 50 mg tablet 50 mg PO Q8H PRN (Reason: pain) Qty: 20 0RF Continued epinephrine [EpiPen] 0.3 mg/0.3 mL auto-injector 0.3 mg IM Q15M Rx Instructions: USE DIRECTED ibuprofen 800 mg tablet 800 mg PO BID Diet: Soft Interventions: Belongings Inventory Last Done: 12/13/24 19:30 Health Concerns: You came into the hospital because you were having bleeding into your upper GI tract. Your extensive alcohol use is a big contributor to this. You had such severe nausea and vomiting that you caused a small Payton-Bray tear in your esophagus. This was identified on the upper endoscopy that the surgeon performed. Your bleeding has resolved with a medication called Protonix. This is in the same family as omeprazole/Prilosec. I am sending you home with a prescription for Prilosec that I would like for you to take twice daily until otherwise directed. Your alcohol use puts you at risk for malnutrition, so I am ordering a few different vitamins for you to take. While you were in the hospital, we found a clot in the vein that comes back from the liver. This clot is stable, and there is still blood flow around it, so that is no emergent treatment needed beyond an anticoagulant. I am starting you on a medication called Eliquis. This helps to reduce further clotting. This will keep the clot from getting worse as your body slowly breaks down the clot. It will not make you more likely to bleed, but if you do start bleeding it will take longer for it to stop. Therefore, exercise some level of caution when getting up and moving around so that you do not start bleeding. I would like for you to eat a soft/bland diet until your stomach starts feeling better, at which point I would like for you to eat the healthiest diet you possibly can. Please follow-up with a primary care provider Print Language: Nepali Patient Instructions: Surg Dc Stand Alone Forms: PCP List Follow-up Care: Artemio Moon, MARCO, [employer] WORK[employer], TUMBL[employer] SUPERVISOR [Primary Care Provider, Family Practice] Vitals documented within 30 minutes of discharge?: Yes
[2024-12-16] MEDS: PANTOPRAZOLE 40 MG VIAL IVP ONE (17:25)
[2024-12-16 17:54] VITALS: BP 125/90; O2SAT 94
== END 2024-12-16 18:01 | disposition home or self-care (01) ==
LOC: ED 15:42 → MS2 15:42
PROVIDERS: ADMIT Nurse Practitioner Acute Care; ATTEND Nurse Practitioner Acute Care

== ENCOUNTER 2025-01-17 10:05 | Observation (INO) ==
--- NOTE | 2025-01-17 13:18 | ED Physician Documentation ---
PD HPI ABD PAIN Stated complaint Stated Complaint: LLQ ABD FLUID Chief complaint Chief Complaint: General Additional information Additional information: 64-year-old female recent diagnosis of alcoholic cirrhosis last alcoholic beverage was over a month ago presents emerged department for ongoing oozing and weeping from her recent paracentesis site on left lower quadrant. Patient was here yesterday where she had paracentesis and 3200 cc were drained. She comes in today for ongoing oozing and worsening pain to the left lower quadrant where she had her paracentesis. She does not think she has had any fevers or chills she says she is chronically cold and this is not outside the norm. Meds/Allgy Home Medications Ambulatory Orders Medication Instructions Recorded Confirmed epinephrine 0.3 mg/0.3 mL 0.3 mg IM Q15M 12/13/2412/20 injection, auto-injector (EpiPen) ibuprofen 800 mg tablet 800 mg PO BID 12/13/2401/16 omeprazole 40 mg capsule,delayed 40 mg PO BID #60 caps 12/16/24 01/16/25 release thiamine mononitrate (vit B1) 100 100 mg PO DAILY 90 d ays #30 tabs 12/28/24 01/16/25 mg tablet (Vitamin B-1 (mononitrate)) tramadol 50 mg tablet 50 mg PO ONCE PRN pain #14 t abs 12/28/24 01/16/25 furosemide 20 mg tablet (Lasix) 20 mg PO DAILY #90 tab s 01/16/25 01/16/25 oxycodone 5 mg tablet 5 mg PO Q8H PRN pain #20 tab s 01/16/25 vit,calcium 27-ferrous 1 tab PO DAILY 30 days #90 tabs 01/16/25 01/16/25 fum 60 mg iron-folic acid 1 mg tablet (Trinatal Rx 1) spironolactone 25 mg tablet 50 mg (2 x 25 mg) PO DAILY #180 01/16/25 01/16/25 tabs Allergies Allergies Allergy/AdvReac Type Severity Reaction Status Date / Time Penicillins Allergy Intermediate Hives Verified 01/17/25 10:24 PFSH Active Problems All Active Problems Tachycardia (Acute) Leukocytosis (Acute) Cirrhosis of liver (Acute) SIRS (systemic inflammatory response syndrome) (Acute) Constipation (Acute) Edema, peripheral (Acute) Abdominal ascites (Acute) Hematemesis of unknown etiology (Acute) Alcoholic pancreatitis (Acute) Hyponatremia (Acute) Knee pain (Acute) Hip pain (Acute) Sinusitis (Acute) Asthma (Acute) Bronchitis (Acute) Osteoarthrosis (Acute) Back pain, acute (Acute) Bacterial sinusitis (Acute) Elevated blood pressure reading (Acute) Dysfunction of both eustachian tubes (Acute) Right otitis media (Acute) Allergic rhinitis (Acute) Allergic conjunctivitis, bilateral (Acute) Encounter for preventative adult health care examination (Acute) Shortness of breath (Acute) Rib pain on left side (Acute) Abdominal pain, LUQ (Acute) H/O colonoscopy (Acute) Pap smear abnormality of cervix (Acute) Screening mammography declined (Acute) Dizziness (Acute) Encounter for smoking cessation counseling (Acute) Alcohol dependence (Acute) Cough (Acute) Elevated LFTs (Acute) Alcohol abuse (Acute) Medical History Medical History No pertinent past medical history No pertinent past medical history Social History Social History (Updated 01/16/25 @ 14:56 by Lashonda Corrigan) Smoking Status: Former smoker Number of Years Smoked: 50 How many cigarettes a day do you smoke? (20 cigarettes=1 Pk): 1 Second hand tobacco smoke exposure: Yes Do you dip or chew tobacco?: No Do you vape?: No Patient requests smoking cessation consult: No Initiate information on smoking cessation: No Living arrangement: At home Marital Status: Living Condition: With spouse/s.o. Support Person: Yes Physical Activity: None Level: Assisted Do you feel safe in your home environment?: Yes History of physical, verbal, emotional, or financial abuse?: No ETOH Use: None Frequency: Daily Substance Use: cannabis (any form) Exam Exam Vital Signs: Vital Signs x48h Temp Pulse Resp BP Pulse Ox 01/17/25 15:00 36.3 C L 92 16 90/60 97 01/17/25 14:00 99/67 98 01/17/25 13:42 88/64 L 96 01/17/25 13:01 36 C L 102 H 18 89/64 L 96 01/17/25 13:00 111 H 89/64 L 100 01/17/25 12:58 79/59 L 96 01/17/25 12:58 99 01/17/25 10:24 36.3 C L 96 18 95/69 96 Constitutional abnormal general appearance (chronically ill), abnormal body habitus (thin), no limitations and alert HENMT normocephalic Eyes PERRL Chest inspection of chest normal Respiratory breath sounds equal bilaterally and normal respiratory effort Gastrointestinal abdomen soft to palpation Tenderness to the left lower quadrant with palpation. Left lower quadrant bruising of clear serous drainage with mild distention. No erythema or purulent drainage from site. Genitourinary no CVA tenderness Extremities normal to inspection Skin skin color normal Results Vitals Vitals: Vital Signs - 24 hr 01/16/25 18:33 01/17/25 10:24 01/17/25 12:58 Temperature 36.3 C L Temperature Source Temporal Artery Scan Pulse Rate 96 Respiratory Rate 18 Blood Pressure 95/69 O2 Saturation 96 99 O2 Source Room air Room air Pain Intensity 2 2 01/17/25 12:58 01/17/25 13:00 01/17/25 13:01 Temperature 36 C L Temperature Source Temporal Artery Scan Pulse Rate 111 H 102 H Respiratory Rate 18 Blood Pressure 79/59 L 89/64 L 89/64 L O2 Saturation 96 100 96 O2 Source Room air Pain Intensity 4 01/17/25 13:42 01/17/25 14:00 01/17/25 14:52 Temperature Temperature Source Pulse Rate Respiratory Rate Blood Pressure 88/64 L 99/67 O2 Saturation 96 98 O2 Source Pain Intensity 7 01/17/25 15:00 Temperature 36.3 C L Temperature Source Temporal Artery Scan Pulse Rate 92 Respiratory Rate 16 Blood Pressure 90/60 O2 Saturation 97 O2 Source Room air Pain Intensity Oxygen O2 Source Room air Labs Labs: Laboratory Tests 01/17/25 13:34 WBC 17.3 H RBC 3.15 L Hgb 9.4 L Hct 28.5 L MCV 90.5 MCH 29.8 MCHC 33.0 RDW 16.3 H Plt Count 277 MPV 11.7 H Neut # (Auto) 14.4 H Lymph # (Auto) 1.5 [place] # (Auto) 1.1 H Eos # (Auto) 0.1 Baso # (Auto) 0.1 Absolute Nucleated RBC 0.00 Nucleated RBC % 0.0 Sodium 129 L Potassium 3.8 Chloride 94 L Carbon Dioxide 31 Anion Gap 4.0 L BUN 7 Creatinine 0.5 L Estimated GFR (MDRD) 125 Glucose 101 Calcium 8.5 Total Bilirubin 1.1 H AST 63 H ALT 19 Alkaline Phosphatase 316 H Total Protein 5.8 L Albumin 2.9 L Globulin 2.9 Albumin/Globulin Ratio 1.0 Lipase 43 Rads (name of study) CT abdomen pelvis with contrast: Relevant Findings:: Final report received and EMP independent interpretation of test Interpretation: IMPRESSION: 1. Significant fluid and edema within the left abdominal wall. No organized fluid collections. 2. Again seen findings consistent with hepatocellular disease as described above. 3. Portal hypertension with small volume ascites. 4. Multiple prominent retroperitoneal and mesenteric lymph nodes of uncertain etiology, more pronounced than prior. 5. Small left and trace right pleural effusions with adjacent Radha. Mild groundglass within the right lower and middle lobes, may be infectious or inflammatory in etiology. 6. Gallbladder wall thickening and edema is similar compared to prior and nonspecific in the setting of portal hypertension. PD Medical Decision Making ED course ED course: 64-year-old female with alcoholic cirrhosis presents emergency department for ongoing left abdominal pain. Labs are complete for further evaluation and WBC does appear to be trending up yesterday it was 15.8 today 17.3. Ongoing anemia, hemoglobin 9.3, hematocrit 20.5. Mild hyponatremia appears to be patient's baseline, sodium 129 bilirubin 1.1, AST 63, alk phos 316. Cytology from yesterday shows few WBCs and no organisms visualized culture is still in progress. Patient is afebrile but still complaining of left lower quadrant abdominal pain from where they did the paracentesis she is slightly hypotensive as well blood pressure is 90/60 slightly tachycardic heart rate 90s to low 100s. She denies any fevers but says that she is constantly chilled which is not outside of her norm. CT abdomen pelvis with contrast shows significant fluid and edema within the left abdominal wall. I spoke with radiologist Dr. Harini Red who said that this could be just post paracentesis fluid collection absorbed subcutaneously which is common after paracentesis. She again is seen to have portal hypertension. I spoke with hospitalist Dr. Trejo about the patient and he believes that patient would benefit from hospitalization and some IV antibiotics with her low blood pressure tachycardia and left lower quadrant worsening abdominal pain. 2 sets of blood cultures have been collected patient has been started on vancomycin she does have a penicillin allergy. She said that it was not anaphylaxis and she had this penicillin allergy as a small child and does not exactly member what happened but she does not recall any throat swelling. She is also prescribed cefepime. Hospitalist has graciously agreed to admit her for observation and 2 sets of blood cultures have been collected antibiotics initiated patient is agreeable to stay. Discharge Plan Discharge Patient Disposition: ED Place in Observation Clinical Impression: Cirrhosis of liver, Leukocytosis, Tachycardia Prescriptions: No Action epinephrine [EpiPen] 0.3 mg/0.3 mL auto-injector 0.3 mg IM Q15M Rx Instructions: USE DIRECTED ibuprofen 800 mg tablet 800 mg PO BID omeprazole 40 mg capsule,delayed release(DR/EC) 40 mg PO BID Qty: 60 2RF oxycodone 5 mg tablet 5 mg PO Q8H PRN (Reason: pain) Qty: 20 0RF tramadol 50 mg tablet 50 mg PO ONCE PRN (Reason: pain) Qty: 14 0RF Rx Instructions: Take for severe pain thiamine mononitrate (vit B1) [Vitamin B-1 (mononitrate)] 100 mg tablet 100 mg PO DAILY 90 Days Qty: 30 3RF Rx Instructions: Take 1 tablet daily Trinatal Rx 1 60 mg iron-1 mg tablet 1 tab PO DAILY 30 Days Qty: 90 3RF furosemide [Lasix] 20 mg tablet 20 mg PO DAILY Qty: 90 1RF Rx Instructions: Take 1 tablet daily spironolactone 25 mg tablet 50 mg PO DAILY Qty: 180 1RF Print Language: Estonian Stand Alone Forms: PCP List
[2025-01-17 13:42] LABS: HCT - HEMATOCRIT 28.5 % (37.0-47.0); HGB - HEMOGLOBIN 9.4 g/dL (12.0-16.0); MEAN PLATELET VOLUME 11.7 fL (7.9-10.8); NRBC ABSOLUTE COUNT (AUTO) 0.00 x10^3/uL; NUCLEATED RED BLOOD CELLS AUTO 0.0 /100WBC; PLT - PLATELET COUNT 277 10^3/uL (130-450); RED CELL DISTRIBUTION WIDTH 16.3 % (12.0-15.0)
[2025-01-17 13:58] LABS: ALT ALANINE AMINOTRANSFERASE 19.0 IU/L (10-60); AST ASPARTATE AMINOTRANSFERASE 63.0 IU/L (10-42); BUN - BLOOD UREA NITROGEN 7.0 mg/dL (6-20); CARBON DIOXIDE - CO2 31.0 mmol/L (21-32); CREATININE 0.5 mg/dL (0.6-1.3); GFR - MDRD 125.0 (>89)
[2025-01-17] MEDS: ACETAMINOPHEN 500 MG TABLET PO STA (14:52)
--- NOTE | 2025-01-17 15:23 | CT Report ---
PROCEDURE: CT Abdomen/Pelvis W INDICATIONS: Yesterday paracentesis, ongoing worsening left ken CONTRAST: [id number] 100ML TECHNIQUE: After the administration of intravenous contrast, a CT scan of the abdomen and pelvis was performed. Images were recorded and evaluated at appropriate window settings. Reformats: coronal and sagittal. For radiation dose reduction, the following was used: automated exposure control, adjustment of mA and/or kV according to patient size. COMPARISON: 12/13/2024 FINDINGS: Image quality: Diagnostic. Lower chest: Small left and trace right pleural effusions with adjacent atelectasis. Mild groundglass within the right middle and lower lobes, may be infectious or inflammatory in etiology. Liver: Borderline hepatomegaly. Heterogeneous appearance of the liver parenchyma. Recannulization of the paramedical vein. Micronodularity of the liver surface. Gallbladder: Gallbladder wall thickening and edema is similar compared to prior, nonspecific in the setting of portal hypertension. Biliary tree: No intrahepatic or extrahepatic dilation, accounting for age. Spleen: Mild splenomegaly. Pancreas: No pancreatic ductal dilation. Adrenals: Left adrenal gland thickening without well-defined nodule. Kidneys and ureters: No hydronephrosis. No renal cystic lesion which requires follow up. No solid mass. Stomach, bowel and peritoneum: No gastric or small bowel dilation. No abnormal wall thickening. Small volume ascites. Diverticulosis without evidence of diverticulitis. Normal appendix. Lymph nodes: Multiple prominent retroperitoneal and mesenteric lymph nodes. Vessels: No infrarenal aortic aneurysm. Patent portal vein. Atherosclerotic vascular calcifications. PELVIS Reproductive organs: Unremarkable. Bladder: No abnormal wall thickening. Pelvic lymph nodes: No pelvic adenopathy by size criteria. Bones: No aggressive osseous abnormality. Degenerative changes of the spine. Other: Significant subcutaneous edema/fluid within the left abdominal wall. IMPRESSION: 1. Significant fluid and edema within the left abdominal wall. No organized fluid collections. 2. Again seen findings consistent with hepatocellular disease as described above. 3. Portal hypertension with small volume ascites. 4. Multiple prominent retroperitoneal and mesenteric lymph nodes of uncertain etiology, more pronounced than prior. 5. Small left and trace right pleural effusions with adjacent Radha. Mild groundglass within the right lower and middle lobes, may be infectious or inflammatory in etiology. 6. Gallbladder wall thickening and edema is similar compared to prior and nonspecific in the setting of portal hypertension. Reviewed by: Carlos A Prakash MD on 01/17/2025 3:20 PM PDT Approved by: Carlos A Prakash MD on 01/17/2025 3:20 PM PDT Station ID: [id number]
--- NOTE | 2025-01-17 16:12 | HISTORY & PHYSICAL EXAMINATION ---
Chief Complaint Chief Complaint Chief Complaint: Drainage from paracentesis site, worsening LLQ pain History of Present Illness Admitted From Admitted From:: Home History Obtained From Records Reviewed: EHR History obtained from: Patient, , EHR History of Present Illness HPI Comment/Other: Ms. Buckley is a 64-year-old female with a past medical history of ETOH use with Recently diagnosed cirrhosis with ascites, recent hospitalization for UGIB who presents with continuous drainage from paracentesis site and worsening LLQ pain. Of note, she presented to the ED on 01/16 for abdominal pain and distention, found to have significant ascites and underwent paracentesis with 3.2L output and given a dose of IV Albumin. Cell count was not indicative of SBP. WBC 250 with 27% neutrophils. She was discharged with plans for primary care follow-up and potential for scheduled paracentesis through radiology. Her cirrhosis is managed at this time by her primary care doctor, but she is pending a referral for GI consultation Upon arriving home from her paracentesis on 01/16, she noted copious amounts of serous drainage oozing from her paracentesis site, as well as worsening LLQ pain. She notes the drainage soaking through her pants and socks, as well as through multiple bath towels. She was also unable to sleep properly due to the abdominal pain. This prompted her representation to ED on the day of admission 01/17. In the ED, work-up was revealing for leukocytosis WBC 17.3 with left shift, Which is increased from her presentation on 01/16, SBP 80s-90s, and tachycardia up to HR 110s, meeting sepsis criteria. Lactate was normal. Lipase was normal 43. Bilirubin and AST elevated at 1.1, 63 respectively but improved from 01/16 day prior 1.3, 73. BAL < 10. PT/INR 15.7, 1.4 improved from 01/16 day prior 16.3, 1.4. On time of assessment at 1700, she states her abdominal pain is a 4/10 aching sensation; it is manageable at this time. She was prescribed Oxycodone for pain yesterday however has not needed to take it. There continues to be small amounts of drainage from her LLQ. She denies respiratory symptoms, no changes to bowel/bladder habits or character. No nausea, vomiting. Denies any fevers at home. Meds/Allgy Home Medications Ambulatory Orders Medication Instructions Recorded Confirmed epinephrine 0.3 mg/0.3 mL 0.3 mg IM Q15M 12/13/2412/20 injection, auto-injector (EpiPen) ibuprofen 800 mg tablet 800 mg PO BID 12/13/2401/16 omeprazole 40 mg capsule,delayed 40 mg PO BID #60 caps 12/16/24 01/16/25 release thiamine mononitrate (vit B1) 100 100 mg PO DAILY 90 d ays #30 tabs 12/28/24 01/16/25 mg tablet (Vitamin B-1 (mononitrate)) tramadol 50 mg tablet 50 mg PO ONCE PRN pain #14 t abs 12/28/24 01/16/25 furosemide 20 mg tablet (Lasix) 20 mg PO DAILY #90 tab s 01/16/25 01/16/25 oxycodone 5 mg tablet 5 mg PO Q8H PRN pain #20 tab s 01/16/25 vit,calcium 27-ferrous 1 tab PO DAILY 30 days #90 tabs 01/16/25 01/16/25 fum 60 mg iron-folic acid 1 mg tablet (Trinatal Rx 1) spironolactone 25 mg tablet 50 mg (2 x 25 mg) PO DAILY #180 01/16/25 01/16/25 tabs Allergies Allergies Allergy/AdvReac Type Severity Reaction Status Date / Time Penicillins Allergy Intermediate Hives Verified 01/17/25 10:24 PFSH Active Problems All Active Problems Upper GI bleed (Acute) Coagulopathy (Acute) Anemia (Chronic) Alcohol use (Acute) Alcoholic cirrhosis of liver with ascites (Acute) Sepsis (Acute) Tachycardia (Acute) Leukocytosis (Acute) Cirrhosis of liver (Acute) SIRS (systemic inflammatory response syndrome) (Acute) Constipation (Acute) Edema, peripheral (Acute) Abdominal ascites (Acute) Hematemesis of unknown etiology (Acute) Alcoholic pancreatitis (Acute) Hyponatremia (Acute) Knee pain (Acute) Hip pain (Acute) Sinusitis (Acute) Asthma (Acute) Bronchitis (Acute) Osteoarthrosis (Acute) Back pain, acute (Acute) Bacterial sinusitis (Acute) Elevated blood pressure reading (Acute) Dysfunction of both eustachian tubes (Acute) Right otitis media (Acute) Allergic rhinitis (Acute) Allergic conjunctivitis, bilateral (Acute) Encounter for preventative adult health care examination (Acute) Shortness of breath (Acute) Rib pain on left side (Acute) Abdominal pain, LUQ (Acute) H/O colonoscopy (Acute) Pap smear abnormality of cervix (Acute) Screening mammography declined (Acute) Dizziness (Acute) Encounter for smoking cessation counseling (Acute) Alcohol dependence (Acute) Cough (Acute) Elevated LFTs (Acute) Alcohol abuse (Acute) Medical History Medical History No pertinent past medical history No pertinent past medical history Social History Social History (Updated 01/17/25 @ 17:49 by Meka Holman) Smoking Status: Current some day smoker If you are a former smoker, when did you quit? (Date/Year): She hasn't quit entirely however her last cigarette was 2 months ago Number of Years Smoked: 50 How many cigarettes a day do you smoke? (20 cigarettes=1 Pk): 1 Second hand tobacco smoke exposure: Yes Do you dip or chew tobacco?: No Do you vape?: No Patient requests smoking cessation consult: No Initiate information on smoking cessation: No Smoking Status Details: Stopped smoking 2 or 3 months ago. Living arrangement: At home Marital Status: Living Condition: With spouse/s.o. Support Person: Yes Physical Activity: None Level: Assisted Physical - Functional Details: Patient walks and performs most ADLs independently at baseline; requires assistance with cooking, does this Do you feel safe in your home environment?: Yes History of physical, verbal, emotional, or financial abuse?: No ETOH Use: Liquor Frequency: Occasional ETOH - Additional Notes: Reports 3-4 shots of vodka usually daily since age of 13 Substance Use: cannabis (any form) Substance Use Details: Last used cannabis today Retired: Yes Optional: Used to work at [employer] in [employer] CPR Status: Do Not Attempt Resuscitation (DNAR) / Allow Natural Review of Systems Constitutional Reports: Changes in appetite or eating habits (Reports minimal appetite after onset of abdominal pain); Denies: Fatigue, Fever, Chills, Weakness or Diaphoresis Eyes Denies: Blurry vision, Floaters, Vision loss or Diplopia Ears, nose, mouth, and throat Denies: Hearing loss or Hearing aids Cardiovascular Reports: shortness of breath with exertion (Intermittently when walking for long periods; does not limit daily activity); Denies: chest pain, palpitations, swelling of feet/ankles, lightheadedness or shortness of breath when lying down Respiratory Reports: Shortness of breath (Intermittently when walking for long periods; does not limit daily activity) and SOB with exertion (Intermittently when walking for long periods; does not limit daily activity); Denies: Cough or Wheezing Gastrointestinal Reports: Abdominal pain (4/10 LLQ aching pain) and Heartburn (Normally takes Omeprazole at home); Denies: Abdominal distention, Nausea, Vomiting, Change in bowel habits, Painful bowel movements or Blood in stool Genitourinary Denies: Painful urination, Urinary frequency, Urinary urgency, Urinary incontinence, Blood in urine or Difficulty voiding Musculoskeletal Denies: Back pain Integumentary/Breast Denies: Rash, Redness, Sores or New lesion Neurological Denies: Headache, Weakness in extremities, Numbness in extremities or Dizziness Endocrine Reports: Cold intolerance (Gets cold easily since young age); Denies: Excessive urination, Excessive thirst, Fatigue or Heat intolerance Hematologic/Lymphatic Denies: Easy bruising or Easy bleeding Allergic/Immunologic Denies: Wheezing Prior Level of Functionality: Patient resides in a with her . She owns and helps him care for some animals including two turkeys, a duck, a dog, and a cat. She ambulates independently without an assistive device and is able to perform most ADLs on her own. Her adult son is also available for support and lives in [place]. Exam Exam Vital Signs: Vital Signs x48h Temp Pulse Pulse Resp BP BP Pulse Ox 01/17/25 17:05 36.7 C 86 16 101/58 L 97 01/17/25 16:58 94 87/58 L 100 01/17/25 16:00 90/59 L 96 01/17/25 16:00 90/59 L 96 01/17/25 15:00 90/60 97 01/17/25 15:00 36.3 C L 92 16 90/60 97 01/17/25 14:00 99/67 98 01/17/25 13:42 88/64 L 96 01/17/25 13:01 36 C L 102 H 18 89/64 L 96 01/17/25 13:00 111 H 89/64 L 100 01/17/25 12:58 79/59 L 96 01/17/25 12:58 99 GEN: No acute distress HEENT: NC/AT, normal appearance of external ears and nose. Hearing baseline. Cardiac: Tachycardic rate regular, systolic murmur Pulm: Lungs CTA bilaterally, no cough, no wheezes. Abdomen: Minimally distended abdomen, soft, tender in the left lower quadrant and left upper quadrant. Subcutaneous edema in the left abdomen. Extremities: Moves all 4 extremities equally. Normal tone. Neuro: Face symmetric, CN II through XII intact grossly. Gait exam deferred Skin: Anicteric, spider angiomata across the chest and cheeks, no evident Shanti's nails Psych: Mood euthymic with congruent affect. Constitutional no apparent distress and alert HENMT normocephalic and head/scalp atraumatic Eyes PERRL, EOMs intact bilaterally and no scleral icterus Neck/C-Spine visual inspection normal and trachea midline Chest inspection of chest normal Respiratory breath sounds equal bilaterally, normal respiratory effort, clear to auscultation bilaterally, no wheezes, no retractions and no use of accessory muscles Cardiovascular normal heart rate noted, regular rhythm noted, murmur noted, no JVD, peripheral pulses 2+ throughout and edema noted (1+ ankle edema) Gastrointestinal abdomen normal to inspection, tender to palpation (mild) and (LLQ) and normoactive bowel sounds Extremities normal to inspection Neurology no focal motor deficit noted, no sensory deficits noted, speech normal and GCS 15 Psychiatry mental status grossly normal, oriented x3, thought process normal, cooperative, affect normal and memory normal Skin skin color normal, no rash, no lesions, no ecchymosis noted, skin turgor normal and no jaundice Small amounts of serous yellow drainage oozing from prior paracentesis site Sepsis Event Note (H) Evaluation Current Stage of Sepsis: Sepsis Possible source of Sepsis: positive GI tract/intra-abdominal Sepsis Criteria Sepsis Criteria: Recorded Heart Rate greater than 90 bpm, WBC count greater than 12,000 or less than 4000, MAP less than 65 mmHg and SBP less than 90 mmHg Conclusion/Plan Problem List (1) Sepsis: Plan: Patient presents with tachycardia HR 110s, hypotension SBP 80s, and leukocytosis WBC 17.3. While she is afebrile, denies respiratory/cardiac symptoms, and no abnormalities to bowel/bladder, there is significant concern for infection given her elevated WBC count and abnormal VS. The most concerning source to be peritonitis, and she is having some abdominal pain that this may be more related to her subcutaneous edema from her leaking paracentesis site. Additional concerns for consolidation seen in her lower chest on CT, pending urine studies. Her CT abdomen is notable for significant fluid and edema within the left abdominal wall, but negative for purulence and organized fluid collections. Lactate and lipase normal. Cytology of ascites fluid and preliminary ascites fluid culture are unremarkable thus far, however there is a risk for spontaneous bacterial peritonitis given her paracentesis and ascites. As abdominal findings are negative thus far, I am also concerned about other areas of infection. Given normal lactate and that she is relatively asymptomatic from her soft pressures, will be gentle with fluid resuscitation in the setting of her decompensated cirrhosis. - 500 cc LR bolus - Chest x-ray, UA to round out infectious workup - Empiric broad-spectrum antibiotics: IV Vancomycin and Cefepime - Daily CBC - Close monitoring of VS - Follow-up blood cultures x 2 drawn in the ED - 12 lead EKG to check for arrhythmia due to tachycardia Qualifiers: Sepsis acute organ dysfunction status: without acute organ dysfunction Sepsis type: sepsis due to unspecified organism Qualified Code(s): A41.9 - Sepsis, unspecified organism (2) Alcoholic cirrhosis of liver with ascites: Plan: Patient was newly diagnosed with alcoholic cirrhosis a few weeks ago. MELD of 11 points, indicating 6% chance of mortality within the next 3 months. Elevated Bilirubin 1.1, AST 63, Alk Phos 316, however improved from 9/30. Overall Cindy Licea class B - Daily CMP - Recommend discontinuing NSAID use at discharge - High-protein low-sodium diet - Given her sepsis as above, will hold off on resuming her diuretics for today - Review of her CT, no good fluid pocket for paracentesis today - Limit Apap to 2g daily - Patient still needs to establish with GI, but she is to do so at the end of this month. (3) Upper GI bleed: Plan: Recently admitted for upper GIB. EGD was performed during stay which demonstrated absent varices but superficial Payton Bray tears with minimal to no bleeding. Hypotensive but no other signs/symptoms of active bleeding. Her hemoglobin is stable from last admission, but does represent an ongoing anemia. - Daily CBC (4) Alcohol use: Plan: Chronic alcohol use since age 13 with 3-4 shots of vodka daily. Denies ever experiencing withdrawals. She states it has been about a month since she last consumed alcohol. Her BAL < 10 currently. - Continue to encourage abstinence from alcohol Lab Results Lab results reviewed: Yes 01/17/25 13:34 01/17/25 13:34 Diagnostic Imaging Results Diagnostic Imaging Results: positive Final report reviewed
[2025-01-17 16:25] LABS: INR 1.4 (0.8-1.2); PT - PROTHROMBIN TIME 15.7 secs (9.9-12.6)
[2025-01-17] MEDS ORDERED: CEFEPIME 2 GM VIAL ONE (16:55)
[2025-01-17] MEDS ORDERED: ONDANSETRON 4 MG/2 ML VIAL IVP PRN (17:18)
[2025-01-17] MEDS ORDERED: ACETAMINOPHEN 500 MG TABLET PO PRN (17:18)
[2025-01-17] MEDS ORDERED: SODIUM CHLORIDE FLUSH 0.9% 10 ML SYRINGE IVP PRN (17:18)
[2025-01-17] MEDS ORDERED: oxyCODONE 5 MG TABLET PO PRN (17:18)
[2025-01-17] MEDS: CEFEPIME 2 GM in SODIUM CHLORIDE 0.9% MINIBAG 100 ML IV STA (17:24)
[2025-01-17] MEDS: SODIUM CHLORIDE FLUSH 0.9% 10 ML SYRINGE IVP SCH (17:29)
[2025-01-17] MEDS: VANCOMYCIN INJ 1 GM, VANCOMYCIN INJ 250 MG in SODIUM CHLORIDE 0.9% 250 ML IV ONE (18:12)
[2025-01-17] MEDS: LACTATED RINGERS 500 ML IV ONE (18:18)
--- NOTE | 2025-01-17 18:20 | ADVANCE CARE PLANNING NOTE ---
Advance Care Planning Planning Encounter Date: 01/17/25 Time: 18:16 Diagnosis for Encounter (1) Sepsis: Qualifiers: Sepsis type: sepsis due to unspecified organism Sepsis acute organ dysfunction status: without acute organ dysfunction Qualified Code(s): A41.9 - Sepsis, unspecified organism (2) Alcoholic cirrhosis of liver with ascites: (3) Upper GI bleed: (4) Alcohol use: (5) Hyponatremia: (6) Anemia: Qualifiers: Anemia type: other cause Other causes of anemia: chronic disease, other Qualified Code(s): D63.8 - Anemia in other chronic diseases classified elsewhere (7) Coagulopathy: Encounter Additional Discussion: Patient is a 64-year-old female with recent diagnosis of alcoholic cirrhosis. She is quit drinking alcohol. Being admitted to the hospital for concern for sepsis of unclear etiology but concerning for SBP or bacteremia. She was asked about her CODE STATUS on admission as a routine. She is clearly given some thought into this matter, and she discusses that she would not want any resuscitative measures. The patient says that she saw her mother of prolonged , and feels after that experience that she values quality over quantity of life. She would not want to be sustained machines for prolonged period of time. She realizes with the terminal nature of her cirrhosis if she does not get a transplant, it would be futile to pursue CPR if she were to . She has never had a POLST filled out, and I would recommend that we fill that out during this admission. Patient surrogate decision maker is her partner, Puneet, who is at bedside. Unclear if they have formal POA paperwork. Code Status: Do Not Attempt Resuscitation Time spent on advance care plannin
--- NOTE | 2025-01-17 19:00 | XRAY Report ---
PROCEDURE: XR Chest 1V INDICATIONS: Sepsis TECHNIQUE: One view of the chest was acquired. COMPARISON: None. FINDINGS: Surgical changes and devices: None. Lungs and pleura: Small pleural effusions. Right basilar pleural-parenchymal band. Increased pulmonary markings. Peribronchial cuffing. Mediastinum: Mediastinal contours appear normal. Heart size is normal. Bones and chest wall: No suspicious bony lesions. Overlying soft tissues appear unremarkable. IMPRESSION: Mild pulm edema and small pleural effusions. Reviewed by: Juan Zheng MD on 01/17/2025 6:56 PM PDT Approved by: Juan Zheng MD on 01/17/2025 6:56 PM PDT Station ID: [id number]
[2025-01-17] MEDS: PANTOPRAZOLE 40 MG TABLET PO SCH (19:05)
[2025-01-17] MEDS: oxyCODONE 5 MG TABLET PO PRN (21:15)
[2025-01-17] MEDS: HEPARIN 5,000 UNIT/ML VIAL SUBQ SCH (21:16)
[2025-01-17] MEDS: LACTATED RINGERS 1,000 ML IV ONE (21:26)
[2025-01-17 22:07] LABS: OCCULT BLOOD,URINE NEGATIVE (NEGATIVE)
[2025-01-17 22:08] LABS: GLUCOSE, URINE (UA) NEGATIVE (NEGATIVE); KETONES,URINE (UA) NEGATIVE (NEGATIVE); SQUAMOUS EPITHELIAL CELL,UR MOD Squamous (<= Few)
[2025-01-18] MEDS: ALBUMIN 25% 12.5 GM/50 ML VIAL IV STA (01:35)
[2025-01-18 01:42] LABS: HCT - HEMATOCRIT 24.4 % (37.0-47.0); HGB - HEMOGLOBIN 7.9 g/dL (12.0-16.0); MEAN PLATELET VOLUME 11.4 fL (7.9-10.8); NRBC ABSOLUTE COUNT (AUTO) 0.00 x10^3/uL; NUCLEATED RED BLOOD CELLS AUTO 0.0 /100WBC; PLT - PLATELET COUNT 207 10^3/uL (130-450); RED CELL DISTRIBUTION WIDTH 16.1 % (12.0-15.0)
--- NOTE | 2025-01-18 01:47 | PROVIDER PROGRESS NOTE ---
Sand Molder Note Sand Molder Note Sand Molder Note: per rn " Pt admitted for peritonitis and left abdominal leaking from prior paracentisis done on 01/16. Pt's BP has been soft since admit and pt has been given 2L's of fluid since arrival. Pt's most recent BP 86/58 on right and 84/54 on the left. HR 88-99. Pt is not symptomatic, gait stable, A&Ox4. Pt did receive albumin on 01/16, her most recent albumin level is 2.9. Do you want to add any orders or just monitor?" cbc, cmp, mag albumin x 1 dose
[2025-01-18 02:00] LABS: ALT ALANINE AMINOTRANSFERASE 13.0 IU/L (10-60); AST ASPARTATE AMINOTRANSFERASE 36.0 IU/L (10-42); BUN - BLOOD UREA NITROGEN 7.0 mg/dL (6-20); CARBON DIOXIDE - CO2 27.0 mmol/L (21-32); CREATININE 0.4 mg/dL (0.6-1.3); GFR - MDRD 162.0 (>89)
[2025-01-18] MEDS: LACTATED RINGERS 1,000 ML IV ONE (02:31)
[2025-01-18 05:41] LABS: HCT - HEMATOCRIT 24.4 % (37.0-47.0); HGB - HEMOGLOBIN 8.2 g/dL (12.0-16.0); MEAN PLATELET VOLUME 11.7 fL (7.9-10.8); NRBC ABSOLUTE COUNT (AUTO) 0.00 x10^3/uL; NUCLEATED RED BLOOD CELLS AUTO 0.0 /100WBC; PLT - PLATELET COUNT 211 10^3/uL (130-450); RED CELL DISTRIBUTION WIDTH 16.1 % (12.0-15.0)
[2025-01-18 05:47] LABS: INR 1.6 (0.8-1.2); PT - PROTHROMBIN TIME 18.1 secs (9.9-12.6)
[2025-01-18] MEDS: VANCOMYCIN INJ 1 GM in SODIUM CHLORIDE 0.9% 250 ML IV SCH (05:48)
[2025-01-18 06:14] LABS: ALT ALANINE AMINOTRANSFERASE 14.0 IU/L (10-60); AST ASPARTATE AMINOTRANSFERASE 38.0 IU/L (10-42); BUN - BLOOD UREA NITROGEN 7.0 mg/dL (6-20); CARBON DIOXIDE - CO2 27.0 mmol/L (21-32); CREATININE 0.4 mg/dL (0.6-1.3); GFR - MDRD 162.0 (>89)
[2025-01-18] MEDS: PRENATAL VITAMIN TABLET PO SCH (08:27)
[2025-01-18] MEDS: THIAMINE 100 MG TABLET PO SCH (08:27)
--- NOTE | 2025-01-18 10:27 | PROVIDER PROGRESS NOTE ---
Subjective Prog Note Date Prog Note Date: 01/18/25 Prog Note Time: 10:21 Subjective Pt reports feeling: No change Subjective: Jane Buckley is a 74-year-old female with PMH of recently diagnosed alcoholic cirrhosis with ascites, recent hospitalization for upper GIB who was admitted with SIRS physiology and concern for sepsis and possible SBP. She has remained hemodynamically stable, though pressures are soft r/t her cirrhosis. She is not demonstrating signs of shock. Today Jane states her abdominal has not improved much from yesterday. She describes it as a aching, pressure quality with 6/10 severity located around her para site. She states she received some pain medication for this which may have improved the pain, however, MAR only indicates opioid admin several hours after this. She denies nausea, vomiting. She continues to endorse yellow serous drainage from her paracentesis site, states that the nurse had changed the dressings of multiple layers of gauze 15 minutes prior to my arrival but it is already saturated. She's not having fevers, dysuria, cough or dyspnea. No new rashes or diarrhea. She has a robust appetite today. Current Medications Current Medications Current Medications: Current Medications Generic Name Dose Route Start Last Admin Trade Name Freq PRN Reason Stop Dose Admin Acetaminophen 500 mg 01/18/25 11:00 Acetaminophen 500 Mg Tablet PO Q6H [facility] Heparin Sodium (Porcine) 5,000 unit 01/17/25 21:00 01/18/25 08:27 Heparin 5,000 Unit/Ml Vial SUBQ 5,000 unit BID AVERY Administration Vancomycin HCl 1 gm/ Sodium 260 mls @ 173.333 mls/hr 01/18/25 05:00 01/18/25 07:33 Chloride IV Infused Q12H AVERY Infusion Lactulose 20 gm 01/18/25 11:00 Lactulose 10 Gm /15 Ml Udc PO BID AVERY Ondansetron HCl 4 mg 01/17/25 17:18 Ondansetron Odt 4 Mg Tablet TL Q6HR PRN Nausea / Vomiting Ondansetron HCl 4 mg 01/17/25 17:18 Ondansetron 4 Mg/2 Ml Vial IVP Q6HR PRN Nausea / Vomiting Oxycodone HCl 5 mg 01/17/25 17:18 01/18/25 10:16 Oxycodone 5 Mg Tablet PO 5 mg Q4HR PRN Administration Pain 5 to 7 Oxycodone HCl 10 mg 01/17/25 17:18 Oxycodone 5 Mg Tablet PO Q4HR PRN Pain 8 to 10 Pantoprazole Sodium 40 mg 01/17/25 18:30 01/18/25 05:48 Pantoprazole 40 Mg Tablet PO 40 mg BIDAC AVERY Administration Multivit/Folic Acid/Iron 1 tab 01/18/25 08:00 01/18/25 08:27 Vitamin Tablet PO 1 tab DAILYWM AVERY Administration Sodium Chloride 10 ml 01/17/25 17:18 Sodium Chloride Flush 0.9% 10 Ml Syringe IVP PRN PRN NEEDED PER PROVIDER ORDERS Sodium Chloride 10 ml 01/17/25 17:18 01/18/25 08:28 Sodium Chloride Flush 0.9% 10 Ml Syringe IVP 10 ml 0100,0900,1700 AVERY Administration Thiamine HCl 100 mg 01/18/25 08:00 01/18/25 08:27 Thiamine 100 Mg Tablet PO 100 mg DAILYWM AVERY Administration Objective Vital Signs/Intake & Output Reviewed Vital Signs: Yes Vital Signs: Vital Signs x48h Temp Pulse Resp BP BP Pulse Ox 01/18/25 07:30 36.7 C 83 16 88/57 L 86/54 L 93 01/18/25 05:37 36.6 C 92 16 87/56 L 94 Intake & Output: Intake & Output 01/15/25 01/16/25 01/17/25 01/18/25 23:59 23:59 23:59 23:59 Intake Total 2069 / 2069 430 / 430 Output Total 150 / 150 Balance 1919 430 / 430 Weight (kg) 44.5 kg Objective General Appearance: positive No acute distress and Alert Eyes Bilateral: positive Normal inspection, PERRL, Conjunctivae nml and No scleral icterus ENT: positive ENT inspection nml Neck: positive Nml inspection, No JVD and Trachea midline Respiratory: positive Chest non-tender, No respiratory distress and Breath sounds nml; negative Wheezes, Rales or Rhonchi Cardiovascular: positive Regular rate & rhythm and Systolic murmur Peripheral Pulses: 2+: Radial (R), 2+: Radial (L), 2+: Dorsalis pedis (R), 2+: Dorsalis pedis (L), 2+: Posterior tibialis (R) and 2+: Posterior tibialis (L) Abdomen: positive Nml bowel sounds and Tenderness (Abdominal tenderness to palpation in LLQ); negative No distention (Mildly distended LLQ, unchanged from yesterday) or Guarding Skin: positive Color nml, No rash, Warm and Dry; negative Other (Facial spider angiomatas; no caput medusae, teodora's nails, jaundice) Extremities: positive Non-tender, Full ROM and Pedal edema (2+ ankle edema) Neurologic/Psychiatric: positive Oriented x3, Motor nml, Sensation nml and Mood/affect nml Lab Results 01/18/25 05:36 01/18/25 05:36 Other Labs: Lab Results x24hrs 01/18/25 01/18/25 01/17/25 Range/Units 05:36 01:37 21:10 WBC 11.8 H 12.4 H (4.8-10.8) x10^3/uL RBC 2.72 L 2.67 L (4.20-5.40) 10^6/uL Hgb 8.2 L 7.9 L (12.0-16.0) g/dL Hct 24.4 L 24.4 L (37.0-47.0) % MCV 89.7 91.4 (81.0-99.0) fL MCH 30.1 29.6 (27.0-31.0) pg MCHC 33.6 32.4 (32.0-36.0) g/dL RDW 16.1 H 16.1 H (12.0-15.0) % Plt Count 211 207 (130-450) 10^3/uL MPV 11.7 H 11.4 H (7.9-10.8) fL Neut # (Auto) 9.5 H 9.8 H (1.5-6.6) 10^3/uL Lymph # (Auto) 1.2 L 1.3 L (1.5-3.5) 10^3/uL [place] # (Auto) 0.7 0.9 (0.0-1.0) 10^3/uL Eos # (Auto) 0.2 0.2 (0.0-0.7) 10^3/uL Baso # (Auto) 0.1 0.1 (0.0-0.1) 10^3/uL Absolute Nucleated RBC 0.00 0.00 x10^3/uL Nucleated RBC % 0.0 0.0 /100WBC PT 18.1 H (9.9-12.6) secs INR 1.6 H (0.8-1.2) Sodium 132 L 132 L (135-145) mmol/L Potassium 3.5 3.4 L (3.5-4.5) mmol/L Chloride 100 L 100 L (101-111) mmol/L Carbon Dioxide 27 27 (21-32) mmol/L Anion Gap 5.0 L 5.0 L (6-13) BUN 7 7 (6-20) mg/dL Creatinine 0.4 L 0.4 L (0.6-1.3) mg/dL Estimated GFR (MDRD) 162 162 (>89) Glucose 101 97 (74-104) mg/dL Lactic Acid (0.5-2.2) mmol/L Calcium 8.2 L 7.7 L (8.5-10.3) mg/dL Magnesium 1.5 L (1.7-2.3) mg/dL Total Bilirubin 1.1 H 0.9 (0.2-1.0) mg/dL AST 38 36 (10-42) IU/L ALT 14 13 (10-60) IU/L Alkaline Phosphatase 231 H 217 H (42-121) IU/L Total Protein 4.9 L 4.6 L (6.4-8.9) g/dL Albumin 2.6 L 2.3 L (3.2-5.5) g/dL Globulin 2.3 2.3 (2.1-4.2) g/dL Albumin/Globulin Ratio 1.1 1.0 (1.0-2.2) Lipase (11-82) U/L Urine Color YELLOW Urine Clarity CLEAR (CLEAR) Urine pH 7.5 (5.0-7.5) PH Ur Specific [place] 1.010 (1.002-1.030) Urine Protein TRACE (NEGATIVE) mg/dL Urine Glucose (UA) NEGATIVE (NEGATIVE) mg/dL Urine Ketones NEGATIVE (NEGATIVE) mg/dL Urine Occult Blood NEGATIVE (NEGATIVE) Urine Nitrite NEGATIVE (NEGATIVE) Urine Bilirubin NEGATIVE (NEGATIVE) Urine Urobilinogen 0.2 (NORMAL) (NORMAL) E.U./dL Ur Leukocyte Esterase NEGATIVE (NEGATIVE) Urine RBC None Seen (0-5) /HPF Urine WBC 0-3 (0-5) /HPF Ur Squamous Epith Cells MOD Squamous H (<= Few) Urine Bacteria Rare (None Seen) /HPF Urine Culture Comments NOT INDICATED Ethyl Alcohol mg/dL 01/17/25 01/17/25 01/17/25 Range/Units 16:14 16:09 13:39 WBC (4.8-10.8) x10^3/uL RBC (4.20-5.40) 10^6/uL Hgb (12.0-16.0) g/dL Hct (37.0-47.0) % MCV (81.0-99.0) fL MCH (27.0-31.0) pg MCHC (32.0-36.0) g/dL RDW (12.0-15.0) % Plt Count (130-450) 10^3/uL MPV (7.9-10.8) fL Neut # (Auto) (1.5-6.6) 10^3/uL Lymph # (Auto) (1.5-3.5) 10^3/uL Catron # (Auto) (0.0-1.0) 10^3/uL Eos # (Auto) (0.0-0.7) 10^3/uL Baso # (Auto) (0.0-0.1) 10^3/uL Absolute Nucleated RBC x10^3/uL Nucleated RBC % /100WBC PT 15.7 H (9.9-12.6) secs INR 1.4 H (0.8-1.2) Sodium (135-145) mmol/L Potassium (3.5-4.5) mmol/L Chloride (101-111) mmol/L Carbon Dioxide (21-32) mmol/L Anion Gap (6-13) BUN (6-20) mg/dL Creatinine (0.6-1.3) mg/dL Estimated GFR (MDRD) (>89) Glucose (74-104) mg/dL Lactic Acid < 0.2 L (0.5-2.2) mmol/L Calcium (8.5-10.3) mg/dL Magnesium (1.7-2.3) mg/dL Total Bilirubin (0.2-1.0) mg/dL AST (10-42) IU/L ALT (10-60) IU/L Alkaline Phosphatase (42-121) IU/L Total Protein (6.4-8.9) g/dL Albumin (3.2-5.5) g/dL Globulin (2.1-4.2) g/dL Albumin/Globulin Ratio (1.0-2.2) Lipase (11-82) U/L Urine Color Urine Clarity (CLEAR) Urine pH (5.0-7.5) PH Ur Specific [place] (1.002-1.030) Urine Protein (NEGATIVE) mg/dL Urine Glucose (UA) (NEGATIVE) mg/dL Urine Ketones (NEGATIVE) mg/dL Urine Occult Blood (NEGATIVE) Urine Nitrite (NEGATIVE) Urine Bilirubin (NEGATIVE) Urine Urobilinogen (NORMAL) E.U./dL Ur Leukocyte Esterase (NEGATIVE) Urine RBC (0-5) /HPF Urine WBC (0-5) /HPF Ur Squamous Epith Cells (<= Few) Urine Bacteria (None Seen) /HPF Urine Culture Comments Ethyl Alcohol < 10.0 mg/dL 01/17/25 Range/Units 13:34 WBC 17.3 H (4.8-10.8) x10^3/uL RBC 3.15 L (4.20-5.40) 10^6/uL Hgb 9.4 L (12.0-16.0) g/dL Hct 28.5 L (37.0-47.0) % MCV 90.5 (81.0-99.0) fL MCH 29.8 (27.0-31.0) pg MCHC 33.0 (32.0-36.0) g/dL RDW 16.3 H (12.0-15.0) % Plt Count 277 (130-450) 10^3/uL MPV 11.7 H (7.9-10.8) fL Neut # (Auto) 14.4 H (1.5-6.6) 10^3/uL Lymph # (Auto) 1.5 (1.5-3.5) 10^3/uL [place] # (Auto) 1.1 H (0.0-1.0) 10^3/uL Eos # (Auto) 0.1 (0.0-0.7) 10^3/uL Baso # (Auto) 0.1 (0.0-0.1) 10^3/uL Absolute Nucleated RBC 0.00 x10^3/uL Nucleated RBC % 0.0 /100WBC PT (9.9-12.6) secs INR (0.8-1.2) Sodium 129 L (135-145) mmol/L Potassium 3.8 (3.5-4.5) mmol/L Chloride 94 L (101-111) mmol/L Carbon Dioxide 31 (21-32) mmol/L Anion Gap 4.0 L (6-13) BUN 7 (6-20) mg/dL Creatinine 0.5 L (0.6-1.3) mg/dL Estimated GFR (MDRD) 125 (>89) Glucose 101 (74-104) mg/dL Lactic Acid (0.5-2.2) mmol/L Calcium 8.5 (8.5-10.3) mg/dL Magnesium (1.7-2.3) mg/dL Total Bilirubin 1.1 H (0.2-1.0) mg/dL AST 63 H (10-42) IU/L ALT 19 (10-60) IU/L Alkaline Phosphatase 316 H (42-121) IU/L Total Protein 5.8 L (6.4-8.9) g/dL Albumin 2.9 L (3.2-5.5) g/dL Globulin 2.9 (2.1-4.2) g/dL Albumin/Globulin Ratio 1.0 (1.0-2.2) Lipase 43 (11-82) U/L Urine Color Urine Clarity (CLEAR) Urine pH (5.0-7.5) PH Ur Specific [place] (1.002-1.030) Urine Protein (NEGATIVE) mg/dL Urine Glucose (UA) (NEGATIVE) mg/dL Urine Ketones (NEGATIVE) mg/dL Urine Occult Blood (NEGATIVE) Urine Nitrite (NEGATIVE) Urine Bilirubin (NEGATIVE) Urine Urobilinogen (NORMAL) E.U./dL Ur Leukocyte Esterase (NEGATIVE) Urine RBC (0-5) /HPF Urine WBC (0-5) /HPF Ur Squamous Epith Cells (<= Few) Urine Bacteria (None Seen) /HPF Urine Culture Comments Ethyl Alcohol mg/dL Diagnostic Imaging Diagnostic Imaging Results: positive Final report reviewed ABX Reporting Has patient been on IV antibiotics over the past 48 hours?: Yes Sepsis Event Note (H) Evaluation Current Stage of Sepsis: Resolved Possible source of Sepsis: positive GI tract/intra-abdominal Sepsis Criteria Sepsis Criteria: SBP less than 90 mmHg Assessment/Plan Problem List (1) Sepsis: Impression: Stable to improved. WBC downtrending. HR normalized. No other clear localizing infectious symptoms. Patient presented with tachycardia HR 110s, hypotension SBP 80s, and leukocytosis WBC 17.3. While she is afebrile, denies respiratory/cardiac symptoms, and no abnormalities to bowel/bladder, there is significant concern for infection given her elevated WBC count and abnormal VS. The most concerning source to be peritonitis, and she is having some abdominal pain but this may be more related to her subcutaneous edema from her leaking paracentesis site. Additional concerns for consolidation seen in her lower chest on CT. Her CT abdomen is notable for significant fluid and edema within the left abdominal wall, but negative for purulence and organized fluid collections. Lactate and lipase normal. Cytology of ascites fluid, preliminary ascites fluid culture (48 hours on 01/18), blood cultures are unremarkable thus far. CXR notable for mild pulmonary edema and small pleural effusions. Urinalysis negative. EKG demonstrates SR with PVCs and R BBB. Patient recieved 1.25L LR and 12.5g Albumin IV overnight for sustained hypotension without any improvements to blood pressure. Patient is grossly asymptomatic, MAP 65, WBC trending down, afebrile, no longer tachycardic HR 80s, WBC trending down from 17.3 to 11.8 on 01/18. Blood cultures pending, negative at 24 hours as of 01/18 - There is no indication for further fluid resuscitation at this time unless patient becomes symptomatic. - Discontinue IV antibiotics, will start her on oral Cipro twice daily for a total of a 5-day course. - Will continue to monitor blood cultures and ascites cultures, if they remain negative at 48 hours, she will discharge home tomorrow. Discussed with the patient and she was agreeable to this. - Continue to monitor for Fever, recurrent tachycardia. - Manage fluid leakage and subcutaneous edema as below Qualifiers: Sepsis acute organ dysfunction status: without acute organ dysfunction Sepsis type: sepsis due to unspecified organism Qualified Code(s): A41.9 - Sepsis, unspecified organism (2) Alcoholic cirrhosis of liver with ascites: Impression: Patient was newly diagnosed with alcoholic cirrhosis a few weeks ago. Meld 3.0 of 18 as of 01/18. Cindy Licea Class B Per liver enzymes continue to be elevated, particularly AST and bilirubin. Her synthetic function indicators including her INR are consistent with cirrhosis. However platelet count is more elevated than I would expect. This may be an indication of an acute phase reactant. While her liver enzymes remain elevated, they have been stable status for this admission. No longer trending. Concernedly she has an NSAID listed on her home medications. She should avoid this given her cirrhosis. Initial imaging was reviewed and there was no significant fluid pocket to warrant further attempts at paracentesis. Recall 3.5 L drained day prior to admission. - Recommend discontinuing NSAID use at discharge - Limit daily Tylenol to 2g daily - High protein, low Na diet, Appreciate dietary assistance. She does do about 1 Ensure per day at home, encouraged her to increase this if she can. - If she diana hemodynamically stable, will resume her diuretic 01/19 - Continued drainage from subcutaneous edema from paracentesis on 01/16, Will try abdominal binder and heating pad o Pain management with scheduled APAP, oxycodone 5 mg every 4 hours as needed - Patient has an outpatient appointment scheduled with GI for the of this month - Patient reports she hasn't had a bowel movement 3 days, will initiate Lactulose 20g PO BID to prevent ammonia accumulation and regular BM, This has already been successful (3) Upper GI bleed: Impression: Patient was recently admitted for upper GIB. EGD was performed during stay which demonstrated absent varices but showed superficial [place] Bray tears with minimal to no bleeding. Hypotensive but no other signs/symptoms of active bleeding. Her hemoglobin is stable from last admission, but does represent an ongoing anemia. Stable on repeat at hospital day 1. - Patient is on a PPI at home; continue Pantoprazole 40mg BID (4) Anemia: Impression: Reviewing previous lab results from late Nov, patient has an ongoing anemia with Hgb 8.2-9.4, Hct 24-28. Stable anemia with most recent H&H 01/18 8.2, 24.4. No signs or symptoms of active bleeding. Soft BPs during admission however MAP stable, asymptomatic. Documentation of her anemia began around the time she was diagnosed with alcohol cirrhosis. I suspect her anemia is secondary to her cirrhosis related to chronic alcoholism (deficiencies in B12 and folate, bone marrow suppression) and chronic inflammatory state. - Continue home vitamin with B12 and folate - Monitor for acute signs/symptoms of bleeding Qualifiers: Anemia type: other cause Other causes of anemia: chronic disease, other Qualified Code(s): D63.8 - Anemia in other chronic diseases classified elsewhere (5) Coagulopathy: Impression: PT and INR elevated at 15.7, 1.4 respectively on admission 01/17. 01/18 18.1, 1.6. This is stable on repeat. No longer trending. Per records, she was on a DOAC for suspicion of portal vein thrombosis after her last admission but was directed to discontinue as her CT abdomen 12/15 demonstrated patent portal vein. I suspect her coagulopathy is secondary to her alcoholic cirrhosis resulting in impaired hepatic synthesis of coagulation factors. (6) Electrolyte abnormality: Impression: Low Mg 1.5, however K is WNL. Low Ca 8.2, but improved from 7.7 on 01/17. Likely multifactorial secondary to cirrhosis and Possibly from infection as well. - Patient has had adequate PO intake, no need for supplementation at this time (7) Alcohol use: Impression: Patient reports chronic alcohol use since age 13 with 3-4 shots of vodka daily. Denies ever experiencing withdrawals. She states it has been about a month since she last consumed alcohol, however she did have slightly elevated BAL on 01/16 18.1. Her BAL < 10 currently. - Encourage continued abstinence from alcohol - Offered to provide resources for alcohol cessation, patient politely declines at this time Inpatient Checklist Lines/Drains/Airways: PIV Fluids/Electrolytes/Nutrition: Regular diet, High-protein DVT Prophylaxis: Heparin 5,000 units SQ Barriers to Discharge: Return to home with upon discharge. Leukocytosis was responsive to IV antibiotics.Likely discharge 01/19. Will monitor blood and ascitic cultures overnight to allow blood cultures to mature for 48 hours. If no growth, she can go with empiric treatment for SBP using oral Cipro for the next 5 days
[2025-01-18] MEDS: ACETAMINOPHEN 500 MG TABLET PO SCH (12:01)
[2025-01-18] MEDS: LACTULOSE 10 GM /15 ML UDC PO SCH (12:01)
--- NOTE | 2025-01-18 14:17 | PHARMACY PROGRESS NOTE ---
Best Possible Medication History Admit Date and Time: 01/17/25 1556 Home Medications Medication Instructions Recorded Confirmed Type epinephrine 0.3 mg/0.3 mL 0.3 mg IM Q15M 12/13/2406/13 History injection, auto-injector (EpiPen) ibuprofen 800 mg tablet 800 mg PO BID 12/13/2401/18 History omeprazole 40 mg capsule,delayed 40 mg PO BID #60 caps 12/16/24 01/18/25 Rx release thiamine mononitrate (vit B1) 100 100 mg PO DAILY 90 d ays #30 tabs 12/28/24 01/18/25 Rx mg tablet (Vitamin B-1 (mononitrate)) tramadol 50 mg tablet 50 mg PO ONCE PRN pain #14 t abs 12/28/24 01/18/25 Rx furosemide 20 mg tablet (Lasix) 20 mg PO DAILY #90 tab s 01/16/25 01/18/25 Rx oxycodone 5 mg tablet 5 mg PO Q8H PRN pain #20 tab s 01/16/25 01/18/25 Rx vit,calcium 27-ferrous 1 tab PO DAILY 30 days #90 tabs 01/16/25 01/18/25 Rx fum 60 mg iron-folic acid 1 mg tablet (Trinatal Rx 1) spironolactone 25 mg tablet 50 mg (2 x 25 mg) PO DAILY #180 01/16/25 01/18/25 Rx tabs Processed by: Pharmacy Medications reviewed in ED?: Yes Medication History completed: Yes Patient Interview: Completed Secondary Source(s): Spouse/Significant other and Insurance records [facility] Statement: As the person ultimately responsible for medication therapy, providers are able to order a medication from an existing home medication list in [facility] via the "Reconcile Routine" prior to Confirmation of that medication by health support specialist. Such practice is discouraged except when the physician, in their clinical judg ment, deems that a medical need exists for a medication without regard to previous use.
[2025-01-18] MEDS: ONDANSETRON ODT 4 MG TABLET TL PRN (19:48)
[2025-01-18] MEDS: CIPROFLOXACIN 250 MG TABLET PO SCH (22:06)
[2025-01-19 00:31] VITALS: TEMP 97.9
[2025-01-19 05:55] LABS: HCT - HEMATOCRIT 24.8 % (37.0-47.0); HGB - HEMOGLOBIN 8.1 g/dL (12.0-16.0); MEAN PLATELET VOLUME 11.8 fL (7.9-10.8); NRBC ABSOLUTE COUNT (AUTO) 0.00 x10^3/uL; NUCLEATED RED BLOOD CELLS AUTO 0.0 /100WBC; PLT - PLATELET COUNT 206 10^3/uL (130-450); RED CELL DISTRIBUTION WIDTH 16.0 % (12.0-15.0)
[2025-01-19] MEDS: FUROSEMIDE 20 MG TABLET PO SCH (08:15)
[2025-01-19] MEDS: SPIRONOLACTONE 25 MG TABLET PO SCH (08:15)
--- NOTE | 2025-01-19 09:12 | Discharge Summary ---
"<Statement entered by Mannie Trejo DO - 01/19/25 13:49> I was present with the DEB student on the hospitalist service. I personally verified the history of present illness and performed the physical examination and medical decision making. I have verified all of the medical students documentation for this encounter and agree with the plan of care below. In brief this is a 64-year-old female with a recent diagnosis of alcoholic cirrhosis. She has decompensation with regard to ascites. No varices or EGD. She presented with septic physiology and was treated with broad-spectrum IV antibiotics. No source was identified but with concern for SBP, she has been transition to empiric treatment for SBP with oral Cipro for 5-day total course. She is chronically soft blood pressure, suspect this is a result of her cirrhosis. Other than some slight orthostatic hypotension that resolved quickly after position changes she does not have any significant symptoms of shock. Blood cultures and ascitic cultures were monitored for 48 hours without any significant growth. Blood cultures will continue to be monitored for a total of 5 days. She is discharged home in stable condition with stable vital signs. Discharge Summary Admit Date: 01/17/25 Discharge Date: 01/19/25 Discharging Provider: Dr. Mannie Trejo DO Primary Care Provider: ROSELIA Stern Code Status: Do Not Attempt Resuscitation Discharge Facility Name: Home, self-care with DIAGNOSES Discharge Diagnoses with Status of Each Condition: Sepsis, resolved Admitted meeting SIRS criteria with leukocytosis, hypotension, and tachycardia with concern for peritonitis. CXR, UA negative. Ascites fluid cytology and cultures negative. Blood cultures with NGTD. WBC downtrending, normotensive, afebrile, other VSS. Will treat empirically for SBP, as she has stablized on antibiotics. - Discharge with Ciprofloxacin 250mg PO BID x 5 days - Patient is directed to seek medical attention should she notice any deteriorating signs/symptoms of infection (fever, chills, palpitations, fatigue) - Follow-up with PCP in next 2-4 weeks. She has GI follow-up also as below. Alcoholic cirrhosis of liver with ascites, stable, chronic Recently diagnosed with alcoholic cirrhosis with ascites. She last underwent paracentesis on 01/16 with 3.2L output, and presented 01/17 with continuous leakage subcutaneous edema from the paracentesis site. MELD 3.0 ~ 18. Has not yet met with GI. No history of hepatic encephalopathy. Reportedly no varices on EGD performed in November. - Follow-up as planned with GI doctor on 02/11 to discuss chronic cirrhosis management, ?transplant candidate - Patient has been provided with an abdominal binder and directions for heat application to manage leakage; she should seek medical evaluation should she notice new purulent drainage, edema, or erythema from the paracentesis site - High protein, low Na diet (patient currently drinks a daily Ensure, encouraged to increase this amount if tolerable) - Discontinue NSAIDs (such as Benadryl, Aleve, Motrin), she had this on her med list, but has been told by her previous doctors that she should not take it. - Resume home diuretic regimen: Furosemide 20mg PO daily, Spironolactone 50mg PO daily, Tolerating at discharge - Normally has no issues with HE not on laxatives. Anemia, stable, chronic Likely secondary to recently diagnosed alcoholic cirrhosis. Hgb, Hct low but stable. - Continue GI prophylaxis with Pantoprazole 40mg BID - Continue home vitamin with B12 and folate - Patient is directed seek medical evaluation should she notice any signs/symptoms of acute bleeding (worsening dizziness, hypotension, rectal bleeding or melena) Alcohol use disorder, stable, chronic Patient voiced a commitment to abstinence from alcohol. Her at bedside is supportive of her. - Encourage continued abstinence from alcohol - Offered to provide resources for alcohol cessation, patient politely declined Patient is DNR/DNI during this hospitalization. She should have a POLST completed in the community if those are her wishes. HPI History of Present Illness: Ms. Buckley is a 64-year-old female with a past medical history of ETOH use with recently diagnosed cirrhosis with ascites, recent hospitalization for UGIB who presented with continuous drainage from paracentesis site and worsening LLQ pain. Of note, she presented to the ED on 01/16 for abdominal pain and distention, was found to have significant ascites and underwent paracentesis with 3.2L output and given a dose of IV Albumin. WBC at the time was not indicative of SBP. She was discharged with plans for primary care follow-up, potential for scheduled paracentesis through radiology, and a pending referral for GI consultation. Upon arriving home from her paracentesis on 01/16, she noted copious amounts of serous drainage oozing from her paracentesis site, as well as worsening LLQ pain. She notes the drainage soaking through her pants and socks, as well as through multiple bath towels. She was also unable to sleep properly due to the abdominal pain. This prompted her representation to ED on the day of admission 01/17. CONSULTS | PROCEDURES Procedures: Chest X-Ray CT Abdomen/Pelvis HOSPITAL COURSE Hospital Course: In the ED, work-up was revealing for leukocytosis WBC 17.3 with left shift, which was increased from 15.8 her presentation on 01/16, SBP 80s-90s, and tachycardia up to HR 110s, meeting sepsis criteria. Lactate was normal. Lipase was normal 43. Bilirubin and AST elevated at 1.1, 63 respectively but improved from 01/16 day prior 1.3, 73. BAL < 10. PT/INR 15.7, 1.4 improved from 01/16 day prior 16.3, 1.4. She was admitted under Observation with the Hospitalist service for concerns of sepsis and peritonitis. Further infectious evaluation was unremarkable. UA negative. CXR with evidence of mild pulmonary edema and small pleural effusions. Cyctology and culture of her ascites fluid obtained from paracentesis on 01/16 are Not suggestive of active infection (PMN less than 250, no organisms on smear), and blood cultures did not demonstrate any growth at 48 hours. They will be monitored for [address] abdomen was notable for significant edema within the left abdominal wall, but negative for purulence and organized fluid collections. There was not a significant ascitic pocket to retap. Lactate WNL. She was treated with empiric Cefepime 2g IV once daily and Vancomycin 1g IV. Her home diuretics Furosemide and Spironolactone were held. She was given Oxycodone 5mg x 2 for pain and scheduled Tylenol for her LLQ pain. During the evening of hospital day 1, she developed sustained asymptomatic hypotension with SBPs 80s-90s, MAP remained 65. She was given 1.25L LR and 12.5g Albumin IV that night without significant change in blood pressure. Notably maps all maintained greater than 65 and her urine output remains stable. By hospital day 2, she remained grossly asymptomatic, MAP 65, WBC downtrending from 17.3 to 11.8, afebrile, and no longer tachycardic. She was continued been monitored while we transition to oral antibiotics and allowed her cultures to mature Upon discharge 01/19, her WBC is stable at 12.0. She is normotensive, afebrile, and she continues without tachycardia. She is discharged with instructions to continue Ciprofloxacin 250 mg PO BID to complete a 5-day course of antibiotics. For her LLQ pain and continued leakage from paracentesis site, she is provided an abdominal binder, as well as encouragement of heat therapy. She is also given Oxycodone 5mg PO and Tylenol, and instructed to discontinue NSAIDs. She is encouraged to continue abstinence from alcohol. For chronic cirrhosis management, she is currently managed by her PCP, however is scheduled for GI consultation on 02/11. ALLERGIES Allergies Allergy/AdvReac Type Severity Reaction Status Date / Time Penicillins Allergy Intermediate Hives Verified 01/17/25 10:24 MEDICATIONS Ambulatory Orders Medication Instructions Recorded Confirmed epinephrine 0.3 mg/0.3 mL 0.3 mg IM Q15M 12/13/2406/13 injection, auto-injector (EpiPen) omeprazole 40 mg capsule,delayed 40 mg PO BID #60 caps 12/16/24 01/18/25 release thiamine mononitrate (vit B1) 100 100 mg PO DAILY 90 d ays #30 tabs 12/28/24 01/18/25 mg tablet (Vitamin B-1 (mononitrate)) tramadol 50 mg tablet 50 mg PO ONCE PRN pain #14 t abs 12/28/24 01/18/25 furosemide 20 mg tablet (Lasix) 20 mg PO DAILY #90 tab s 01/16/25 01/18/25 oxycodone 5 mg tablet 5 mg PO Q8H PRN pain #20 tab s 01/16/25 01/18/25 vit,calcium 27-ferrous 1 tab PO DAILY 30 days #90 tabs 01/16/25 01/18/25 fum 60 mg iron-folic acid 1 mg tablet (Trinatal Rx 1) spironolactone 25 mg tablet 50 mg (2 x 25 mg) PO DAILY #180 01/16/25 01/18/25 tabs acetaminophen 500 mg tablet 500 mg PO Q6H #0 tabs 07/11 (Tylenol Extra Strength) ciprofloxacin HCl 250 mg tablet 250 mg PO BID #6 tabs 01/19/25 PHYSICAL EXAM AT DISCHARGE Vital Signs: Vital Signs x48h Temp Pulse Resp BP Pulse Ox 10/03/25 12:42 36.6 C 94 16 102/70 96 01/19/25 09:00 36.6 C 96 16 100/65 95 General Appearance: positive No acute distress and Alert Eyes Bilateral: positive Normal inspection ENT: positive ENT inspection nml Neck: positive Trachea midline Respiratory: positive No respiratory distress and Breath sounds nml Cardiovascular: positive Regular rate & rhythm and No murmur Peripheral Pulses: positive 2+ Abdomen: positive Nml bowel sounds, No distention and Tenderness (Mild LLQ tenderness around area of paracentesis site) Skin: positive Color nml, No rash, Warm and Dry Extremities: positive Pedal edema (1-2+ ankle edema) Neurologic/Psychiatric: positive Oriented x3, Motor nml, Sensation nml and Mood/affect nml LABS 01/19/25 05:23 01/18/25 05:36 DIAGNOSTIC IMAGING Diagnostic Imaging Results: Final report reviewed SEPSIS Current Stage of Sepsis: Resolved Possible source of Sepsis: GI tract/intra-abdominal Sepsis Criteria: SBP less than 90 mmHg FOLLOW UP Follow Up: Patient is sent home with instructions to follow-up with her primary care provider for post-hospitalization evaluation. She is already scheduled for GI consultation for chronic cirrhosis management on 02/11. TIME SPENT Time Spent in Discharge (Minutes): 42 Discharge Plan Discharge Patient Disposition: Home, Self Care Condition: Stable Medically Cleared Date:: 01/19/25 Prescriptions: New ciprofloxacin HCl 250 mg Tablet 250 mg PO BID Qty: 6 0RF acetaminophen [Tylenol Extra Strength] 500 mg Tablet 500 mg PO Q6H Qty: 0 0RF Continued epinephrine [EpiPen] 0.3 mg/0.3 mL auto-injector 0.3 mg IM Q15M Rx Instructions: USE DIRECTED omeprazole 40 mg capsule,delayed release(DR/EC) 40 mg PO BID Qty: 60 2RF oxycodone 5 mg tablet 5 mg PO Q8H PRN (Reason: pain) Qty: 20 0RF tramadol 50 mg tablet 50 mg PO ONCE PRN (Reason: pain) Qty: 14 0RF Rx Instructions: Take for severe pain thiamine mononitrate (vit B1) [Vitamin B-1 (mononitrate)] 100 mg tablet 100 mg PO DAILY 90 Days Qty: 30 3RF Rx Instructions: Take 1 tablet daily Trinatal Rx 1 60 mg iron-1 mg tablet 1 tab PO DAILY 30 Days Qty: 90 3RF furosemide [Lasix] 20 mg tablet 20 mg PO DAILY Qty: 90 1RF Rx Instructions: Take 1 tablet daily spironolactone 25 mg tablet 50 mg PO DAILY Qty: 180 1RF Discontinued ibuprofen 800 mg tablet 800 mg PO BID Diet: Low Sodium Interventions: Belongings Inventory Last Done: 01/19/25 10:00 Discharge Last Done: 01/19/25 12:45 Discharge Checklist - Nursing Last Done: 01/19/25 12:44 Health Concerns: You were admitted with concern for a systemic infection due to bacteria in your belly. Graciously, your white blood cell count has improved, and you are no longer exhibiting vital signs that are concerning for bloodstream infection. The bacterial culture has not grown anything to date. Out of an abundance of caution, am starting you on a 5-day course of antibiotic. You have already received 2 days of this. You will complete a further 3 days at home. If you have any fevers or chills, or worsening abdominal pain please return to the ED. Please follow-up with your GI doctor in the coming weeks as planned. In order to maintain your health with your cirrhosis, you should maintain a low- sodium and high-protein diet. Your body needs calories and protein. Low sodium will help you keep from accumulating additional fluid. You have water pills as well as your primary care doctor as already prescribed. Please keep taking the vitamins as well as prescribed. Finally, you had some fluid in the soft tissue in your abdomen. This came from the paracentesis or fluid removal from your abdomen earlier this week. You can keep wearing the abdominal binder, and until you stop leaking any fluid. In the future when you have a paracentesis, if it is continuing to leak you can request that they put a small stitch in. Hopefully with water pills titrated appropriately you do not need frequent paracentesis. Print Language: Tunisian Patient Instructions: Ciprofloxacin, Paracentesis Dc, Peritonitis Follow-up Care: Artemio Moon, MARCO, SOCIAL WORKER PALLIATIVE CARE, MOLECULAR SPECTROSCOPIST [Primary Care Provider, Family Practice] Vitals documented within 30 minutes of discharge?: Yes (see vitals charting)"
[2025-01-19 12:44] VITALS: BP 102/70; O2SAT 96
== END 2025-01-19 12:47 | disposition home or self-care (01) ==
LOC: ED 10:05 → MS2 10:05
PROVIDERS: ADMIT Student in an Organized Health Care Education/Training Program; ATTEND Student in an Organized Health Care Education/Training Program